=== PATIENT | male | born 1960 | race Caucasian/White ===

== ENCOUNTER 2016-11-18 19:37 | Observation (INO) ==
[2016-11-18] MEDS ORDERED: MORPHINE 2 MG/1 ML SYRINGE IV STA (21:13)
[2016-11-18] MEDS ORDERED: ONDANSETRON 4 MG/2 ML VIAL IV STA (21:13)
[2016-11-18] MEDS ORDERED: SODIUM CHLORIDE 0.9% 500 ML IV STA (21:13)
[2016-11-18] MEDS ORDERED: ONDANSETRON 4 MG/2 ML VIAL ONE (21:30)
[2016-11-18] MEDS ORDERED: MORPHINE 2 MG/1 ML SYRINGE ONE (21:30)
--- NOTE | 2016-11-18 22:17 | CT Report ---
CT head/brain wo con Indication: Fall. CT BRAIN WITHOUT CONTRAST DLP: 1164 mGy*cm. One or more of the following dose reduction techniques was used: Automated exposure control, adjustment of the mA and/or kV according the patient size, or use of iterative reconstruction techniques. Comparison: None. Date of admission: 11/18/2016. Technique: Axial noncontrast CT images of the brain were obtained. Findings: No acute hemorrhage, mass or mass effect. Generalized atrophy is present with prominence of the ventricular system. Covington-white junction is maintained throughout. Some degree of patchy periventricular white matter hypodensity is noted diffusely. No bone lesions. Mild mucosal thickening of the maxillary sinus is noted. Impression: No acute intracranial pathology. Generalized atrophy with ventricular prominence. Patchy small vessel ischemic change, chronic. PROCEDURE INTERPRETED AT [facility] DEPARTMENT OF RADIOLOGY Final Report Signed by: Russel Floyd M.D.
--- NOTE | 2016-11-18 22:20 | CT Report ---
CT cervical spine wo con Indication: Neck pain after fall. CT CERVICAL SPINE WITHOUT CONTRAST DLP: 327 mGy*cm. One or more of the following dose reduction techniques was used: Automated exposure control, adjustment of the mA and/or kV according the patient size, or use of iterative reconstruction techniques. Comparison: None Technique: Axial noncontrast CT images of the cervical spine were obtained. Coronal and sagittal reconstructions were provided. Findings: Some degree of motion artifact present particularly at C2-3. No acute cervical spine fracture or subluxation shown. No bony encroachment on the canal. Mild disc space narrowing from C2-3 through C6-7 is present. No significant facet joint hypertrophy. No intervertebral foraminal stenosis. Impression: Minimal diffuse disc space narrowing. No acute bony injury. PROCEDURE INTERPRETED AT [facility] DEPARTMENT OF RADIOLOGY Final Report Signed by: Russel Floyd M.D.
--- NOTE | 2016-11-18 22:21 | XRay Report ---
XR humerus LT Indication: Fall. Left humerus 2 views: Midshaft humerus fracture is present. Visualized shoulder and elbow appear grossly intact. Overlying skin appears intact. Impression: Midshaft humerus fracture. PROCEDURE INTERPRETED AT [facility] DEPARTMENT OF RADIOLOGY Final Report Signed by: Russel Floyd M.D.
--- NOTE | 2016-11-18 22:22 | XRay Report ---
XR pelvis AP 1 or 2 Views Indication: Pelvic pain. Fall. Pelvis one view: No fracture, dislocation or diastases of the pelvic ring or either hip. Soft tissues are intact and unremarkable. Impression: Negative pelvis. PROCEDURE INTERPRETED AT [facility] DEPARTMENT OF RADIOLOGY Final Report Signed by: Russel Floyd M.D.
--- NOTE | 2016-11-18 22:24 | XRay Report ---
XR chest 1V portable Indication: Shortness of breath. Chest 1 view: Comparison 6 hours earlier, 1502 hours. Left humerus fracture is now present. Heart size is normal. Mediastinal contours unremarkable. Lung volumes are decreased with mild atelectasis. No infiltrates. No pleural effusion or pneumothorax. No displaced rib fractures seen. Impression: Pulmonary hypoinflation. Left humerus fracture. PROCEDURE INTERPRETED AT [facility] DEPARTMENT OF RADIOLOGY Final Report Signed by: Russel Floyd M.D.
--- NOTE | 2016-11-18 22:24 | XRay Report ---
XR shoulder 2V LT Indication: Fall. Humerus fracture. Left shoulder 2 views: Left midshaft humerus fracture noted. Left shoulder shows no dislocation or fracture component. Soft tissues are intact. Impression: Negative left shoulder. Left mid shaft humerus fracture. PROCEDURE INTERPRETED AT [facility] DEPARTMENT OF RADIOLOGY Final Report Signed by: Russel Floyd M.D.
[2016-11-18 22:28] LABS: Basophils # 0.1 10*3/uL (0.0-0.2); Basophils % 0.5 % (0.0-0.8); Eosinophils # 0.1 10*3/uL (0.0-0.87); Eosinophils % 0.7 % (0.00-10.9); Hematocrit 38.9 VOL% (42.0-52.0); Hemoglobin 14.1 GM/DL (14.0-18.0); Immature Granulocytes % 0.5 %; Immature Granulocytes Absolute 0.05 #; Lymphocytes # 1.4 10*3/uL (1.4-4.0); Mean Corpuscular HGB Conc 36.2 GM/DL (32-36); Mean Corpuscular Hemoglobin 30 PG (27-34); Mean Corpuscular Volume 83.5 FL (87-102); Mean Platelet Volume 8.9 FL (9.6-12.0); Monocytes # 0.9 10*3/uL (0.11-0.8); Monocytes % 8.4 % (1.7-12.7); Neutrophils % 76.9 % (38.7-73.9); Platelet Count 172 T/CUMM (130-400); Red Blood Count 4.66 MC/CUMM (3.8-5.5); Red Cell Distribution Width 13.1 % (9.3-17.3); White Blood Count 10.5 T/CUMM (4-12)
[2016-11-18 22:36] LABS: PT Patient Result 10.7 SECS
[2016-11-18 22:47] LABS: Alanine Aminotransferase 10 U/L (16-61); Albumin 3.2 G/DL (3.4-5.0); Alkaline Phosphatase 43 U/L (45-117); Aspartate Amino Transferase 12 U/L (0-37); Blood Urea Nitrogen 13 MG/DL (7-18); Calcium 8.2 MG/DL (8.5-10.1); Glucose 230 MG/DL (74-106); Osmolality,Calculated 279.8 MOS/KG (273-304); Sodium 137 MMOL/L (136-145); Total Protein 5.8 G/DL (6.4-8.3)
--- NOTE | 2016-11-18 22:48 | Emergency Department Note ---
Negrito Pryor Rolonda, am scribing for, and in the presence of, Irving Crzu MD 22:06. Nancy Pryor Charles R, MD, personally performed the services described in this documentation, ascribed by Tex Mahan in my presence, and it is both accurate and complete . Arrival - Arrival Chief Complaint: Extremity Injury Stated Complaint: Broken arm ED Nursing Triage Note: EMS reports that patient was walking to the store to get something to eat when he lost his balance and fell onto left shoulder. Visual deformity noted upon triage with crepitus. Patient recieved 10mg morphine and 250ml NS bolus. Patient complains of severe pain at this time. Mode of Arrival: Ambulatory Limitations: No Limitations Source: Old Records Reviewed, RN Notes Reviewed Time Seen by Provider: 11/18/16 20:08 - History of Present Illness HPI Narrative: Pt is a 56 y/o male who ambulated to the ED with c/o broken left arm with an onset of a few hours ago. Pt states that he was walking to the store to get chicken when suddenly lost his balance falling in a ditch landing on the left shoulder resulting in severe pain. Pt denies hitting his head on the ground. Pt confirms not being able to move his arm at all. No other complaint/pain reported by the pt. Onset (ago): hour(s) Consistency: constant Severity: severe Allergies/Adverse Reactions: Allergies Allergy/AdvReac Type Severity Reaction Status Date / Time No Known Allergies Allergy Verified 11/18/16 14:44 Home Medications: Home Medications Medication Instructions Recorded Confirmed Type Benztropine Tab [Cogentin Tab] 1 mg PO BEDTIME 11/18/16 11/18/16 History Citalopram [CeleXA] 20 mg PO DAILY 11/18/16 11/18/16 History Divalproex Sodium [Divalproex 1,500 mg PO BEDTIME 11/18/16 11/18/16 History Sodium] HydrOXYzine PAMOATE CAP [Vistaril 50 mg PO BEDTIME 11/18/16 11/18/16 History Cap] Trazodone HCl 100 mg PO QAM 11/18/16 11/18/16 History Review of System - Review of System 12 point system: reviewed and no additional remarkable complaints except as stated - Review of System Constitutional: Absent: chills Eyes: Absent: discharge Head/Ears/Nose/Throat: Absent: earache Cardiovascular: Absent: chest pain Gastrointestinal: Absent: abdominal pain Genitourinary male: Absent: urgency Musculoskeletal: Present: arm pain (left shoulder\) Skin: Absent: rash Neurological: Absent: headache Psychiatric: Absent: anxiety Endocrine: Absent: cold intolerance Hematological/Lymphatic: Absent: easy bleeding Allergic/Immunologic: Absent: facial swelling Medical,Surgical,& Family Hx - Medical History Psychological: History of: Psychiatric Problems Endocrine: History of: Diabetes Mellitus (NIDDM) - Social History Smoking Status: Unknown if ever smoked Frequency of Alcohol Use: None Type of Drug Use: None Exam Vital Signs: Vital Signs Temperature 98.0 F 11/18/16 19:40 Pulse Rate 113 H 11/18/16 20:08 Respiratory Rate 22 11/18/16 19:40 Blood Pressure 107/76 11/18/16 19:40 O2 Sat by Pulse Oximetry 97 11/18/16 19:40 - General General appearance: alert, in no apparent distress - Head Head exam: Present: atraumatic, normocephalic - Eye Eye exam: Present: normal appearance, PERRL, EOMI. Absent: nystagmus - ENT ENT exam: Present: normal exam, normal oropharynx, mucous membranes moist. Absent: mucous membranes dry - Neck Neck exam: Present: normal inspection, full ROM. Absent: tenderness - Chest Chest inspection: Present: normal inspection, symmetric chest wall rise. Absent : tenderness - Respiratory Respiratory exam: Present: normal lung sounds bilaterally. Absent: wheezes - Cardiovascular Cardiovascular exam: Present: regular rate, normal rhythm, normal heart sounds. Absent: bradycardia - Abdominal Exam Abdominal exam: Present: soft, normal bowel sounds. Absent: tenderness - Extremities Exam Extremities exam: Absent: normal inspection (deformity of the left shoulder with pain, crepitus; shoulder humerus deformity in abduction) - Back Exam Back exam: Present: normal inspection, full ROM. Absent: tenderness - Neurological Exam Neurological exam: Present: alert, oriented X3, CN II-XII intact - Psychiatric Psychiatric exam: Present: normal affect, normal mood. Absent: depressed - Skin Skin exam: Present: warm, intact, normal color Course Course Narrative: Procedure note: Patient's arm was placed in anatomical straight position with the arm completely extended out at the elbow. Patient ulnar and radial pulse was patent patient good cap refill neurovascularly intact ulnar nerve is intact. Posterior splint was placed long arm from proximal to distal down to the wrist. X-ray was taken for alignment which showed good alignment. Post reduction exam showed good cap refill good radial pulse ulnar artery patent neurovascular intact - Consultations Consultation #1: Dr. Devin Champion consulted and he will admit patient will get medicine consulted hospitalist for medical management Time: 22:46 Results - Labs CBC & BMP: 11/18/16 22:14 Lab Results: I have reviewed the patients labs Labs: Laboratory Tests 11/18/16 22:14 WBC 10.5 D RBC 4.66 Hgb 14.1 Hct 38.9 L MCV 83.5 L MCHC 36.2 H Plt Count 172 MPV 8.9 L Neut % (Auto) 76.9 H Lymph % (Auto) 13.0 L Neut # (Auto) 8.0 H Mower # (Auto) 0.9 H Laboratory Tests 11/18/16 22:14 INR 1.0 PT Patient/Control Mix 10.7 - Diagnostic Findings Procedure: CT: report reviewed by me (Head: No acute intracranial pathology. Generalized atrophy with ventricular prominence. Patchy small vessel ischemic change, chronic.; Cervical Spine: minimal diffuse disc space narrowing. No acute bony injury.), X-ray: report reviewed by me (Shoulder: Negative left shoulder. Left mid shaft humerus fracture.; Pelvis: Negative pelvis.; Humerus: Midshaft humerus fracture.; Chest: Pulmonary hypoinflation. Left humerus fracture.) Disposition Clinical Impression: Fall, Left midshaft humerus fracture, Extrapyramidal and movement disorder Case discussed with: patient Disposition: Still a Patient Condition: Stable Time of Disposition: 22:48
--- NOTE | 2016-11-18 22:56 | XRay Report ---
XR humerus LT Indication: Humerus fracture. Left humerus one view: Image labeled "postreduction" demonstrates improved alignment of a mid shaft humerus fracture. There continues to be offset of the fracture fragments by approximately the diameter of the mid shaft of the humerus. Impression: Improved alignment of the midshaft humerus fracture. PROCEDURE INTERPRETED AT [facility] DEPARTMENT OF RADIOLOGY Final Report Signed by: Russel Floyd M.D.
--- NOTE | 2016-11-18 23:11 | Hospitalist Consult Note ---
Assessment and Plan (1) Palpitations Status: Acute Current Visit: No (2) Fall Status: Acute Current Visit: Yes (3) Extrapyramidal and movement disorder Status: Acute Assessment and plan: We will continue home meds as appropriate. Patient does seem to have extraparametal symptoms. Seem to have a resting tremor tardive dyskinesia. His Cogentin that he takes at night should help with this. Will continue a sliding scale as needed for his diabetes. Current Visit: Yes History of Present Illness - Consult Narrative Reason for consult: Medical problems History of present illness: Mr. Resendiz is a 56 year old male who presented to the ER with chief complaint of broken left arm. He was walking to a store lost his balance and fell into a ditch landing on his left side. He suffered a fracture of his humerus. He was brought up to our hospital for further evaluation. He is being admitted to orthopedic service and we were consulted secondary to his medical issues. CC: Caden Beltran Jr., MD - Home Medications and Allergies Home Medications: Home Medications Medication Instructions Recorded Confirmed Type Benztropine Tab [Cogentin Tab] 1 mg PO BEDTIME 11/18/16 11/18/16 History Citalopram [CeleXA] 20 mg PO DAILY 11/18/16 11/18/16 History Divalproex Sodium [Divalproex 1,500 mg PO BEDTIME 11/18/16 11/18/16 History Sodium] HydrOXYzine PAMOATE CAP [Vistaril 50 mg PO BEDTIME 11/18/16 11/18/16 History Cap] Trazodone HCl 100 mg PO QAM 11/18/16 11/18/16 History Allergies/Adverse Reactions: Allergies Allergy/AdvReac Type Severity Reaction Status Date / Time No Known Allergies Allergy Verified 11/18/16 14:44 Medical,Surgical,& Family Hx - Medical History Psychological: History of: Psychiatric Problems Endocrine: History of: Diabetes Mellitus (NIDDM) - Surgical History Surgical History: noncontributory (none) - Family History Family History: Reports;: Family Diabetes - Social History Smoking Status: Unknown if ever smoked Frequency of Alcohol Use: None Type of Drug Use: None 12 point system: reviewed and no additional remarkable complaints except as stated Exam - Constitutional Vitals: Period Temp Pulse Resp BP Sys/Weldon Pulse Ox Last 24 Hr 98.0 F-98.0 F 113-118 20-22 107-107/76-76 97 - General General appearance: alert, in no apparent distress patient has a resting tremor and extraparametal symptoms - Head Head exam: Present: atraumatic, normocephalic - Eye Eye exam: Present: normal appearance, PERRL, EOMI. Absent: nystagmus - ENT ENT exam: Present: normal exam, normal oropharynx, mucous membranes moist. . - Neck Neck exam: Present: normal inspection, full ROM. Absent: tenderness - Chest Chest inspection: Present: normal inspection, symmetric chest wall rise. Absent : tenderness - Respiratory Respiratory exam: Present: normal lung sounds bilaterally. Absent: wheezes - Cardiovascular Cardiovascular exam: Present: regular rate, normal rhythm, normal heart sounds. Absent: bradycardia - Abdominal Exam Abdominal exam: Present: soft, normal bowel sounds. Absent: tenderness - Extremities Exam Extremities exam: Absent: normal inspection patient is status post soft splint placed by ER physician - Back Exam Back exam: Present: normal inspection, full ROM. Absent: tenderness - Neurological Exam Neurological exam: Present: alert, oriented X3, CN II-XII intact - Psychiatric Psychiatric exam: Present: normal affect, normal mood. - Skin Skin exam: Present: warm, intact, normal color Results - Labs CBC & BMP: 11/18/16 22:14 11/18/16 22:14
[2016-11-19] MEDS ORDERED: DEXTROSE 50% 25 GM/50 ML VIAL IV PRN
[2016-11-19] MEDS ORDERED: GLUCAGON 1 MG VIAL IM PRN
[2016-11-19] MEDS ORDERED: HYDROmorphone 2 MG/1 ML VIAL IV PRN
[2016-11-19] MEDS: SODIUM CHLORIDE 0.9% 1,000 ML IV SCH ×3 (00:34→22:08)
[2016-11-19 01:23] LABS: Apearance,Urine CLEAR (Clear); Bilirubin,Urine Negative (Negative); Blood, Urine Negative (Negative); Glucose,Urine (UA) >=500 mg/dL (Negative); Ketones,Urine 20 mg/dL (Negative); Mucus,Urine Occasional /LPF (Occasional); Nitrite,Urine Negative (Negative); Protein,Urine Negative; RBC,Urine <1 /HPF (0-4); Squamous Epithelial Cell,Urine Occasional /HPF (0-10); Urine Color Yellow (Yellow); Urine Specific Gravity 1.024 (1.001-1.035); Urine Urobilinogen < 2.0 EU/DL (0.2-1.0); WBC,Urine <1 /HPF (0-6)
[2016-11-19 01:26] LABS: Barbiturates Screen,Urine Negative (Negative); Benzodiazepines Screen,Urine Negative (Negative); Cannabinoid Screen,Urine Negative (Negative); Opiate Screen,Urine Positive (Negative); Phencyclidine Screen,Urine Negative (Negative)
--- NOTE | 2016-11-19 04:12 | EKG Report ---
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
[2016-11-19 06:14] LABS: INR 1.1; PT Patient Result 11.5 SECS
--- NOTE | 2016-11-19 08:36 | Orthopedic History & Physical ---
History of Present Illness Chief complaint: Left humerus fracture History of present illness: Mr. Resendiz is a 56 year old male See dictated report Diagnosis left humerus fracture Plan due to medical issues and psychological problems would recommend stabilization. Do not believe he is a good candidate for nonoperative management of his shaft fracture Home Medications Medication Instructions Recorded Confirmed Type Benztropine Tab [Cogentin Tab] 1 mg PO BEDTIME 11/18/16 11/18/16 History Citalopram [CeleXA] 20 mg PO DAILY 11/18/16 11/18/16 History Divalproex Sodium [Divalproex 1,500 mg PO BEDTIME 11/18/16 11/18/16 History Sodium] HydrOXYzine PAMOATE CAP [Vistaril 50 mg PO BEDTIME 11/18/16 11/18/16 History Cap] Trazodone HCl 100 mg PO QAM 11/18/16 11/18/16 History Allergies Allergy/AdvReac Type Severity Reaction Status Date / Time No Known Allergies Allergy Verified 11/18/16 14:44 Medical,Surgical,& Family Hx - Medical History Psychological: History of: Anxiety Disorders, Bipolar Disorder, Schizophrenia, Psychiatric Problems Endocrine: History of: Diabetes Mellitus (NIDDM) Musculoskeletal: History of: Musculoskeletal Problems (left arm fx) - Family History Family History: Reports;: Family Diabetes - Social History Smoking Status: Unknown if ever smoked Frequency of Alcohol Use: None Type of Drug Use: None Exam - Constitutional Vitals: Period Temp Pulse Resp BP Sys/Weldon Pulse Ox Last 24 Hr 97.6 F-98.0 F 103-118 20-22 107-119/45-76 97-98 Results - Labs CBC & BMP: 11/18/16 22:14 11/18/16 22:14
[2016-11-19] MEDS: CITALOPRAM 20 MG TABLET PO SCH (11:12)
[2016-11-19] MEDS: INSULIN REGULAR 100 UNIT/ML SUBCUT SCH ×4 (11:12→22:08)
--- NOTE | 2016-11-19 11:54 | Hospitalist Progress Note ---
Assessment and Plan - Time spent with patient Time spent with patient: Greater than 30 minutes (1) Humerus fracture Status: Acute Assessment and plan: Defer to orthopedics. Current Visit: Yes (2) Extrapyramidal and movement disorder Status: Acute Assessment and plan: Continue medications. Current Visit: Yes Hospitalist: Subjective Interval history: No complaints or overnight events. Admitted with left humerus fracture. Exam - Constitutional Vitals: Period Temp Pulse Resp BP Sys/Weldon Pulse Ox Last 24 Hr 97.6 F-98.1 F 101-118 20-22 107-119/45-76 97-98 General appearance: no acute distress - Head Head exam: Present: normocephalic, atraumatic - Eye Eye exam: Present: EOMI Pupils: Present: COREEN - ENT ENT exam: Present: normal exam - Neck Neck exam: Present: normal inspection - Respiratory Respiratory exam: Present: clear to auscultation bilaterally. Absent: rhonchi, wheezes - Cardiovascular Cardiovascular exam: Present: regular rate and rhythm. Absent: gallop, rubs, systolic murmur - GI/Abdominal GI/Abdominal exam: Present: normal bowel sounds, soft. Absent: distended, firm , guarding, tenderness, rebound - Extremities Exam Extremities exam: Present: normal inspection, other (left arm within lianna wrapping). Absent: calf tenderness, edema Results - Labs CBC & BMP: 11/18/16 22:14 11/18/16 22:14 Lab Results: I have reviewed the past 24 hour labs
[2016-11-19] MEDS ORDERED: PROPOFOL 200 MG/20 ML VIAL IV ONE (13:40)
[2016-11-19] MEDS ORDERED: ONDANSETRON 4 MG/2 ML VIAL ONE ×2 (13:40→15:47)
[2016-11-19] MEDS ORDERED: PHENYLEPHRINE 1 MG/10 ML SYRINGE IV ONE (13:40)
[2016-11-19] MEDS ORDERED: LIDOCAINE 2% 5 ML VIAL ONE (13:40)
[2016-11-19] MEDS ORDERED: ROCURONIUM 100 MG/10 ML VIAL IV ONE (13:40)
[2016-11-19] MEDS ORDERED: PROMETHAZINE 25 MG/1 ML VIAL IM PRN (15:01)
[2016-11-19] MEDS ORDERED: MAGNESIUM HYDROXIDE SUSP 30 ML UDCUP PO PRN ×2 (15:01)
[2016-11-19] MEDS ORDERED: fentaNYL 100 MCG/2 ML VIAL ONE (15:22)
[2016-11-19] MEDS ORDERED: MIDAZOLAM 2 MG/2 ML VIAL ONE (15:22)
[2016-11-19] MEDS ORDERED: SEVOFLURANE 1 UNIT/15 MINUTE INH ONE (15:22)
[2016-11-19] MEDS ORDERED: ACETAMINOPHEN 1,000 MG/100 ML VIAL IV ONE (15:22)
[2016-11-19] MEDS ORDERED: ONDANSETRON 4 MG/2 ML VIAL IV PRN ×2 (15:34)
[2016-11-19] MEDS ORDERED: HYDROmorphone 2 MG/1 ML VIAL ONE (15:47)
--- NOTE | 2016-11-19 15:48 | XRay Report ---
XR humerus LT Indication: ORIF left humerus. Fluoroscopy left humerus: Fluoroscopy time 38 seconds, 4 captured images. Mid shaft humerus fracture secured with a IM nail in anatomic alignment. The jai stands proud of the humeral head. Impression: Anatomic alignment following IM nail placement. PROCEDURE INTERPRETED AT [facility] DEPARTMENT OF RADIOLOGY Final Report Signed by: Russel Floyd M.D.
[2016-11-19] MEDS: HYDROmorphone 2 MG/1 ML VIAL IV PRN ×4 (15:51→16:18)
[2016-11-19] MEDS ORDERED: LACTATED RINGERS 1,000 ML IV SCH (16:00)
--- NOTE | 2016-11-19 16:22 | Anesthesia Post-Op ---
Anesthesia Post OP - Post Ansesthetic Evaluation Patient seen in post op: Yes Resp: within normal limits CV: within normal limits Mental: within normal limits Temp: within normal limits [id number]: within normal limits Nausea and Vomiting: within normal limits Pain: within normal limits
--- NOTE | 2016-11-19 16:23 | History and Physical Report ---
DATE OF ADMISSION: 11/19/2016 HISTORY OF PRESENT ILLNESS: This is an admission note from 11/19/16. A 56-year-old white male admit eliud late last night for evaluation of injuries he sustained when he fell into a ditch. Reportedly, barbie garner was ambulating independently when this occurred. He had immediate pain and deformity about his lef t upper arm. He was evaluated at [facility] where diagnosis confirmed a displaced mid s haft humerus fracture. He has been admitted to the orthopedic service and medical consultation is in place. He has no other complaints. PAST MEDICAL HISTORY: Diabetes, psychiatric. MEDICATIONS: Trazodone, Restoril, divalproex, Celexa, and Cogentin. ALLERGIES: None. PHYSICAL EXAMINATION GENERAL: Well-developed, well-nourished male. He is awake, alert, responds to questions appropriate ly. HEENT: Within normal limits. CHEST: Clear. HEART: Regular rate and rhythm. ABDOMEN: Soft, nontender. /RECTAL: Deferred. EXTREMITIES: He has no pain about either lower extremity. At the right upper on the left side a spl int is in place. He describes intact sensibility in the median, radial, and ulnar distribution. He is able to extend the digits and the wrist with some difficulty, but functional. No pain about the f orearm or elbow. Radiographs confirmed displaced minimally comminuted mid shaft humerus fracture, slightly oblique. IMPRESSION: LEFT HUMERAL SHAFT FRACTURE. PLAN: I will discuss with him treatment options. I do not believe he is a good candidate for non-op erative management given his multiple medical issues and psychiatric diagnosis. I recommended we con floor refinisher operative intervention given the mid shaft nature and the transverse nature of the fracture, I believe a jai would be satisfactory. He appears to understand and agrees with the plan for intramedu llary nailing left humerus later today. I did discuss with him nature of the procedure, associated r isks, benefits, and alternative, risks we discussed including infection, anesthesia, and possible ner ve injury. All questions were answered. He appears to understand and agrees to proceed.
--- NOTE | 2016-11-19 17:14 | EKG Report ---
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
[2016-11-19] MEDS ORDERED: BENZTROPINE 1 MG TABLET PO SCH (21:00)
[2016-11-19] MEDS ORDERED: DIVALPROEX 500 MG TABLET PO SCH (21:00)
--- NOTE | 2016-11-19 21:41 | Operative Note ---
DATE: 11/19/2016 PREOPERATIVE DIAGNOSIS: LEFT HUMERAL SHAFT FRACTURE. POSTOPERATIVE DIAGNOSIS: LEFT HUMERAL SHAFT FRACTURE. OPERATIVE PROCEDURE: Intramedullary nailing, left humerus. SURGEON: Caden Beltran Jr., MD ANESTHESIA: General. INDICATIONS: A 56-year-old white male, who injured last night when he fell and fracturing his left u pper arm. I discussed with him preoperatively the diagnosis and treatment options. It was felt that he would best benefit from stabilization and I have recommended intramedullary device. OPERATIVE PROCEDURE: The patient was taken to the operating room and under general anesthetic, posit ioned in a beach chair type position. The left upper extremity and shoulder region were prepped and draped in usual sterile manner. He received Ancef preoperatively. A small deltoid splitting approac h was then carried out to the greater tuberosity. The cuff was split for later repair. Starting poi nt was obtained and a guide jai passed into the proximal fracture fragment. The humerus was gently m anipulated, so that the guide jai could be passed in the distal fragment. A 9 x 280 mm nail was jono cted. The humeral shaft was reamed twice up to 10 mm. The nail inserted. It was locked proximally with a spiral blade and end cap. That was locked distally x1 with a freehand technique front to back . All wounds were irrigated. The deltoid split and cuff split were repaired with #0 Vicryl, 2-0 Philippe ryl for subcutaneous layer, and jagdeep for skin. The spiral blade portal was closed with 2-0 Vicryl and jagdeep, the distal locking portal with jagdeep only. Sterile dressings were applied. He was a wakened and taken to recovery room in stable condition. CC:
[2016-11-19] MEDS: HydrOXYzine PAMOATE 25 MG CAPSULE PO SCH ×2 (22:06→22:13)
[2016-11-19] MEDS: traZODone 50 MG TABLET PO SCH ×2 (22:08→22:13)
--- NOTE | 2016-11-20 07:57 | Orthopedic Progress Note ---
Orthopedics - Subjective Interval history: Neurovascular intact including radial nerve pain control fair with pills. Instructed will discharge today. Exam - Constitutional Vitals: Period Temp Pulse Resp BP Sys/Weldon Pulse Ox Last 24 Hr 97.4 F-100.3 F 96-118 14-20 93-143/63-86 92-100 Results - Labs CBC & BMP: 11/18/16 22:14 11/18/16 22:14 Quality Measures - VTE Contraindication to Pharmacological VTE Prophylaxis: High Risk of Bleeding
--- NOTE | 2016-11-20 08:00 | Discharge Summary ---
Hospital Course - Hospital Course Hospital Course: Admitted for humeral shaft fracture left underwent repair discharged home Diagnosis - Discharge Diagnosis (1) Humeral shaft fracture Status: Acute Discharge Plan - Discharge Data Disposition: Disch To Home/Self Care Condition at Discharge: Stable Discharge Diet: advance to your usual diet Activity: increase activity as tolerated (Use sling for comfort elbow range of motion and gentle shoulder motion is okay) Hygiene: may shower, keep area(s) dry Weight Bearing at Discharge: weight bear as tolerated Driving: not until seen by doctor - Discharge Medications New HYDROcodone/ACETAMIN 7.5-325 [[place] 7.5-325] 2 tablet PO Q4H PRN #25 tablet PRN Reason: Pain Severe (8-10) Continue Trazodone HCl 100 mg PO QAM HydrOXYzine PAMOATE CAP [Vistaril Cap] 50 mg PO BEDTIME Benztropine Tab [Cogentin Tab] 1 mg PO BEDTIME Citalopram [CeleXA] 20 mg PO DAILY Divalproex Sodium 1,500 mg PO BEDTIME - Follow Up or Referral - Forms/Instructions Additional Discharge Instructions: Discharge to home discharge medications [place] 7.5 #25 no refills continue home medications arm sling for comfort daily dressing change with small and large Band-Aids elbow range of motion is encouraged actively gentle passive motion of the shoulder is also okay. May shower keep wounds dry follow-up 1 week November 27 Exam - Constitutional Vitals: Period Temp Pulse Resp BP Sys/Weldon Pulse Ox Last 24 Hr 97.4 F-100.3 F 96-118 14-20 93-143/63-86 92-100 Discharge Results Labs on day of discharge: Labs from last 24 hours 11/20/16 11/19/16 11/19/16 07:11 21:00 11:24 POC Glucose 137 H 212 H 216 H 11/19/16 09:17 POC Glucose 304 H DS: Provider Date of admission: 11/18/16 23:00 Primary care physician: . 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
[2016-11-20] MEDS: INSULIN REGULAR 100 UNIT/ML SUBCUT SCH ×3 (08:38→16:14)
[2016-11-20] MEDS: CITALOPRAM 20 MG TABLET PO SCH (08:58)
[2016-11-20] MEDS: SODIUM CHLORIDE 0.9% 1,000 ML IV SCH (14:04)
[2016-11-20 16:25] VITALS: BP 123/75
== END 2016-11-20 16:38 | disposition home or self-care (01) ==
LOC: EDBD → EDUNIT# → N.ED 19:37 → N.EDINP 23:00 → INTOOBSV 23:00 → N.3E 23:03
PROVIDERS: ADMIT Orthopaedic Surgery; ATTEND Orthopaedic Surgery

== ENCOUNTER 2016-12-09 12:14 | Inpatient (IN) ==
[2016-12-09] MEDS ORDERED: PANTOPRAZOLE 40 MG TABLET PO STA (13:01)
[2016-12-09] MEDS ORDERED: ONDANSETRON 4 MG/2 ML VIAL IV STA (13:01)
--- NOTE | 2016-12-09 13:05 | Emergency Department Note ---
Arrival - Arrival Chief Complaint: GI Bleed/Rectal ED Nursing Triage Note: C/O DARK RED DIARRHEA ONSET ABOUT A WEEK AGO. PT STATES IS UNABLE TO EAT OR DRINK DUE TO DIARRHEA Mode of Arrival: Stretcher Limitations: No Limitations Source: Patient Time Seen by Provider: 12/09/16 13:01 - History of Present Illness HPI Narrative: This 56-year-old white male presents with complaints of melanotic stools for the past week. He states that associated with this he has had low-grade nausea without significant vomiting. He likewise denies any complaints of chills, fever, heartburn, belching, or water brash. He l has had no complaints of chest pain or shortness of breath. He also has just recently been discharged from [facility] for [facility] of [facility] medications. Currently he is medically stable Onset (ago): week(s) (Patient presents 2 weeks post onset of symptoms) Allergies/Adverse Reactions: Allergies Allergy/AdvReac Type Severity Reaction Status Date / Time No Known Allergies Allergy Verified 11/21/16 09:49 Home Medications: Home Medications Medication Instructions Recorded Confirmed Type Benztropine Tab [Cogentin Tab] 1 mg PO BID 11/18/16 12/09/16 History Citalopram [CeleXA] 20 mg PO DAILY 11/18/16 12/09/16 History Divalproex Sodium 1,500 mg PO BEDTIME 11/18/16 12/09/16 History HydrOXYzine PAMOATE CAP [Vistaril 50 mg PO BEDTIME 11/18/16 12/09/16 History Cap] Trazodone HCl 50 - 100 mg PO QPM 11/18/16 12/09/16 History Review of System - Review of System 12 point system: reviewed and no additional remarkable complaints except as stated - Review of System Constitutional: Present: as per HPI Respiratory: Present: as per HPI Cardiovascular: Present: as per HPI Gastrointestinal: Present: as per HPI Medical,Surgical,& Family Hx - Medical History Cardio: No history of: CAD, Hypertension Psychological: History of: Anxiety Disorders, Bipolar Disorder, Schizophrenia, Psychiatric Problems Endocrine: History of: Diabetes Mellitus (NIDDM) (non compliant with medications ) No history of: Thyroid Disorder Respiratory: History of: Asthma No history of: Bronchitis Gastrointestinal: History of: GERD Musculoskeletal: History of: Musculoskeletal Problems (frequent falls) - Surgical History Abdominal Surgeries: Patient denies: Appendectomy, Cholecystectomy Orthopedic Surgeries: Surgical HX of;: Orthopedic Surgery (ORIF and IM nailing of the left humerus) Patient denies;: Total Hip Replacement, Total Knee Replacement - Family History Family History: Reports;: Family Diabetes - Social History Smoking Status: Unknown if ever smoked Frequency of Alcohol Use: Unknown Type of Drug Use: Unknown Exam Physical Examination: GENERAL: Well developed, well nourished elderly white male in no acute distress. HEENT: Normocephalic. No trauma. Moist mucous membranes. EOMI. PERRLA. ENT NML NECK: Supple. No adenopathy. CARDIAC: Regular. No murmurs. Heart rate 110 CHEST: Clear to auscultation. No respiratory distress. O2 sat 99% evidence of recent right clavicle surgery ABDOMEN: Soft. Nontender. Active bowel sounds.: Red blood in the rectal vault EXTREMITIES: No trauma. Normal ROM. No pedal edema. SKIN: No diaphoresis. No rash. NEURO: Alert. Neuro intact no focal deficits. Vital Signs: Vital Signs Temperature 98.8 F 12/09/16 12:27 Pulse Rate 111 H 12/09/16 12:27 Respiratory Rate 18 12/09/16 12:27 Blood Pressure 143/90 12/09/16 12:27 O2 Sat by Pulse Oximetry 99 12/09/16 12:21 Course - Reevaluation(s) Reevaluation #1: Discussed with patient the need for hospitalization. - Consultations Consultation #1: Discussed with hospitalist who will accept for further evaluation treatment. Results - Labs CBC & BMP: 12/09/16 14:17 12/09/16 14:17 Labs: I reviewed the laboratory noted the marginal drop in crit, bump in glucose, and bump in CPK - Impressions EKG: Sinus rhythm at 94. Normal ST segments normal EKG. Disposition Clinical Impression: Gastrointestinal hemorrhage, Schizophrenia, Recent right clavicle surgery Time of Disposition: 15:43
[2016-12-09] MEDS ORDERED: ONDANSETRON 4 MG/2 ML VIAL ONE (14:05)
[2016-12-09] MEDS ORDERED: PANTOPRAZOLE 40 MG TABLET PO ONE (14:05)
[2016-12-09 14:22] LABS: Basophils # 0.1 10*3/uL (0.0-0.2); Basophils % 0.9 % (0.0-0.8); Eosinophils % 0.2 % (0.00-10.9); Hematocrit 39.2 VOL% (42.0-52.0); Hemoglobin 13.4 GM/DL (14.0-18.0); Immature Granulocytes % 0.3 %; Immature Granulocytes Absolute 0.02 #; Lymphocytes # 1.4 10*3/uL (1.4-4.0); Mean Corpuscular HGB Conc 34.2 GM/DL (32-36); Mean Corpuscular Hemoglobin 29 PG (27-34); Mean Corpuscular Volume 85.6 FL (87-102); Mean Platelet Volume 8.7 FL (9.6-12.0); Monocytes # 0.6 10*3/uL (0.11-0.8); Neutrophils # 4.3 10*3/uL (1.4-7.4); Neutrophils % 67.6 % (38.7-73.9); Platelet Count 340 T/CUMM (130-400); Red Blood Count 4.58 MC/CUMM (3.8-5.5); Red Cell Distribution Width 13.2 % (9.3-17.3); White Blood Count 6.3 T/CUMM (4-12)
[2016-12-09 14:35] LABS: Partial Thromboplastin Time 28.9 SECS (0-40)
[2016-12-09 15:01] LABS: Alanine Aminotransferase 13 U/L (16-61); Albumin 3.2 G/DL (3.4-5.0); Alkaline Phosphatase 73 U/L (45-117); Aspartate Amino Transferase 21 U/L (0-37); Blood Urea Nitrogen 21 MG/DL (7-18); Calcium 8.5 MG/DL (8.5-10.1); Glucose 169 MG/DL (74-106); Osmolality,Calculated 279.8 MOS/KG (273-304); Potassium 3.8 MMOL/L (3.5-5.1); Sodium 137 MMOL/L (136-145); Total Protein 7.2 G/DL (6.4-8.3); Troponin I Only < 0.015 NG/ML (0.00-0.045)
--- NOTE | 2016-12-09 15:49 | Hospitalist History & Physical ---
Assessment and Plan (1) Gastrointestinal hemorrhage with melena Status: Acute Assessment and plan: We will gently rehydrate, start PPIs, DVT prophylaxis, promote bowel rest, and consult gastroenterology to evaluate and treat. I have reviewed the patient's home medication none of which are commonly associated with the risk for the development of melena. Current Visit: Yes (2) IDDM (insulin dependent diabetes mellitus) Status: Acute Assessment and plan: We will monitor the patient's blood sugars. Start Accu-Cheks with sliding scale coverage and obtain hemoglobin A1c. Current Visit: No (3) History of bipolar disorder Status: Acute Assessment and plan: We will resume the patient's home medication regimen. Will obtain valproic acid level. Current Visit: No History of Present Illness Chief complaint: Bloody stool History of present illness: This is a very pleasant 56-year-old male that presented to the ED at [facility] this afternoon for the evaluation of bloody stools. Patient has a medical history significant for bipolar disease, humeral shaft fracture, non insulin-dependent diabetes mellitus, schizophrenia, and anxiety disorder. Patient surgical history significant for ORIF and IM nailing of the left humerus (10/2016). In recent months, the patient has had 2 hospitalizations here at [facility]. On November 18 the patient was admitted here for a left humerus fracture as a result of falling in a ditch. The patient underwent surgical repair of the left humerus on November 19, 2016 under the direction of Dr. Beltran he was subsequently discharged home to follow-up with his primary care physician and orthopedist as indicated. The patient represented to the ED on November 21, 2016 for evaluation of a fall. Apparently the patient had been discharged to his apartment which is upstairs. The patient was attempting to ambulate down the stairs when he lost his balance falling to the bottom of the stairs. He was evaluated and subsequently discharged to [facility] for continuation of care. The patient was discharged from [facility] on December 05, 2016 back to his apartment with his roommate. The patient reported the onset of the above symptoms 1 week prior to presentation. He reported that the symptoms actually started when he was at [facility] however he did not inform the staff. He further reported that he was unable to eat or drink due to the multiple loose stools. The patient was assessed at the time of ED presentation, labs were obtained. Complete blood count reported white blood cell count of 6.3, hemoglobin 13.4, hematocrit 39.2, and platelet count at 340. Coagulation panel reported INR 1.0 , PT at 11.0, and PTT at 28.9. Chemistry panel reported sodium at 137, potassium 3.8, chloride 101, carbon dioxide 24, BUN 21, alkaline phosphatase at 492 creatinine 1.00, glucose at 169. Cardiac enzymes reported a troponin at less than 0.015. After brief discussion with both Dr. Higgins and Dr. Monae, the patient will be admitted to the hospitalist services for continuation of care. A gastroenterology consultation has been requested to assist in the management of the patient in a clinical encounter. Home medications have been reviewed and reconciled. CODE STATUS discussed; the patient is a FULL CODE. Home Medications Medication Instructions Recorded Confirmed Type Benztropine Tab [Cogentin Tab] 1 mg PO BID 11/18/16 12/09/16 History Citalopram [CeleXA] 20 mg PO DAILY 11/18/16 12/09/16 History Divalproex Sodium 1,500 mg PO BEDTIME 11/18/16 12/09/16 History HydrOXYzine PAMOATE CAP [Vistaril 50 mg PO BEDTIME 11/18/16 12/09/16 History Cap] Trazodone HCl 50 - 100 mg PO QPM 11/18/16 12/09/16 History Allergies Allergy/AdvReac Type Severity Reaction Status Date / Time No Known Allergies Allergy Verified 11/21/16 09:49 Medical,Surgical,& Family Hx - Medical History Cardio: No history of: CAD, Hypertension Psychological: History of: Anxiety Disorders, Bipolar Disorder, Schizophrenia, Psychiatric Problems Endocrine: History of: Diabetes Mellitus (NIDDM) (non compliant with medications ) No history of: Thyroid Disorder Respiratory: History of: Asthma No history of: Bronchitis Gastrointestinal: History of: GERD Musculoskeletal: History of: Musculoskeletal Problems (frequent falls) - Surgical History Abdominal Surgeries: Patient denies: Appendectomy, Cholecystectomy Orthopedic Surgeries: Surgical HX of;: Orthopedic Surgery (ORIF and IM nailing of the left humerus) Patient denies;: Total Hip Replacement, Total Knee Replacement - Family History Family History: Reports;: Family Diabetes - Social History Smoking Status: Unknown if ever smoked Frequency of Alcohol Use: Unknown Type of Drug Use: Unknown 12 point system: reviewed and no additional remarkable complaints except as stated Exam - Constitutional Vitals: Period Temp Pulse Resp BP Sys/Weldon Pulse Ox Last 24 Hr 98.8 F-98.8 F 111-111 18-18 143-143/90-90 99 General appearance: normal weight, no acute distress - Head Head exam: Present: normal inspection, normocephalic, atraumatic - Eye Eye exam: Present: EOMI, conjunctival injection. Absent: nystagmus Pupils: Present: COREEN, normal accommodation - ENT ENT exam: Present: normal exam, normal external ear exam, normal oropharynx - Neck Neck exam: Present: normal inspection. Absent: lymphadenopathy, meningismus, thyromegaly - Respiratory Respiratory exam: Present: clear to auscultation bilaterally. Absent: rales, rhonchi, stridor, wheezes - Cardiovascular Cardiovascular exam: Present: regular rate and rhythm. Absent: carotid bruit, diastolic murmur, gallop, JVD, rubs, systolic murmur - GI/Abdominal GI/Abdominal exam: Present: normal bowel sounds, soft. Absent: tenderness - Extremities Exam Extremities exam: Present: normal inspection, normal capillary refill, full ROM. Absent: edema - Back Exam Back exam: Present: normal inspection - Neurological Exam Neurological exam: Present: alert, oriented X3, CN II-XII intact - Psychiatric Psychiatric exam: Present: anxious - Skin Skin exam: Present: normal color, warm, dry Results - Labs CBC & BMP: 12/09/16 14:17 12/09/16 14:17 Lab Results: I have reviewed the past 24 hour labs
[2016-12-09] MEDS ORDERED: GLUCAGON 1 MG VIAL IM PRN ×2 (15:58→18:22)
[2016-12-09] MEDS ORDERED: DEXTROSE 50% 25 GM/50 ML VIAL IV PRN ×2 (15:58→18:22)
[2016-12-09] MEDS: SODIUM CHLORIDE 0.9% 1,000 ML IV SCH (17:54)
[2016-12-09] MEDS: INSULIN REGULAR 100 UNIT/ML SUBCUT SCH ×2 (17:54→20:53)
--- NOTE | 2016-12-09 20:37 | Gastrointestinal Consult Note ---
Assessment and Plan (1) GI bleeding Status: Acute Assessment and plan: The picture is a confusing one as he has had both black stools which may be due to Pepto-Bismol or upper GI tract bleeding and more recently rectal bleeding that is bright red which may be secondary to brisk ulcer bleeding although this is usually associated with tachycardia and a greater drop in the patient's hematocrit which at this point appears negligible. I strongly suspect he has rectal bleeding from either colitis or hemorrhoidal bleeding and at the earlier lack stools may been secondary to gastric erosions or perhaps even just the Pepto-Bismol he had been taking to make his stomach feel better. This patient has a remarkable amount of anxiety which certainly may lead to gastric erosions and/or ulcerations. I will start him on some Protonix if this is not already been initiated. Risks of the procedures include but are not limited to: Bleeding, infection, perforation, cardiac and pulmonary compromise. Current Visit: Yes (2) Diarrhea Status: Acute Assessment and plan: Because of the patient's diarrhea remains unclear. This may be due to a previous C. difficile infection over or due to antibiotic exposure over the last several weeks, will check standard stool cultures and C. difficile and I do plan to do a colonoscopy for the patient leaves the hospital after we establish the findings of the upper GI tract. We will likely do this on . The patient's Depakote level is normal equals 56 (normal equals 50 -100)--this is the medication on the patient's list most likely producing diarrhea at 7-23%, contrary to his opinion, trazodone typically produces constipation in the vast majority of patients. Further recommendations post discovery of stool culture results and colonoscopy. We will undoubtedly performed biopsies to look for the various types of colitis including microscopic and collagenous. Current Visit: Yes (3) Nausea & vomiting Status: Acute Assessment and plan: I suspect this patient probably has some degree of erosive gastritis although is not complaining of any pain. He has chronic nausea and vomiting. This may have more to do with his anxiety than other issues. He is followed at [place], and is on Celexa to help with his anxiety. He must be able to tolerate his medications to some degree as he has a normal Depakote level. We will continue to observe the amount that he is eating and having bowel movements. I have asked the nurses to focus on these issues for me and document in the chart. Current Visit: Yes (4) Fecal incontinence Status: Acute Assessment and plan: This may likely improve as the patient's diarrhea improves. Lomotil will help, once we have an etiology for the diarrhea. Current Visit: Yes History of Present Illness Chief complaint: GI bleeding, earlier melena, bright red blood, diarrhea 20x/day History of present illness: Mr. Resendiz is a 56 year old male Who presents with a combination of recent black stools now turned to red over the last 1 week. Despite the chronic nature of the blood loss his hematocrit remains 39%. He does not have any abdominal pain. He describes diarrhea with the onset of trazodone use at home and states that this can be up to 20 times per day and that the patient is starting to have fecal incontinence. Initially the fecal incontinence was black and he states that "I ruined my apartment", more recently the stool has turned to bright red. The patient had taken some Pepto-Bismol and so this may have affected the color of the stool. He denies use of antibiotics in the last several months. He does admit to some recent nausea and vomiting states "I cannot keep anything down". He does not eat any unusual foods such as steak tar tar, sushi, or undercooked meats. He has not traveled any place recently. Patient states that he has a bipolar disorder and anxiety and is seen frequently in the [facility] for this. He is on a variety of medications including Cogentin, Celexa, Depakote, Vistaril, and the trazodone as mentioned. Stool is grossly guaiac positive and red on physical examination. There is some rectal skin thickening but no masses within the reach of my finger. The rectum is filled with gas. He carries the diagnosis of schizophrenia as well and has a frightened/anxious affect. Despite the recent complaints of nausea vomiting and inability to eat patient's liver function tests and BUN and creatinine are all within normal limits--he is an albumin of 3.2. The patient had previously undergone evaluation by Dr. Beltran with surgical repair of the left humerus on 11/19/16 with subsequent transfer to [facility] for rehabilitation and subsequent discharge from that facility on 12/05/16. Home Medications Medication Instructions Recorded Confirmed Type Benztropine Tab [Cogentin Tab] 1 mg PO BID 11/18/16 12/09/16 History Citalopram [CeleXA] 20 mg PO DAILY 11/18/16 12/09/16 History Divalproex Sodium 1,500 mg PO BEDTIME 11/18/16 12/09/16 History HydrOXYzine PAMOATE CAP [Vistaril 50 mg PO BEDTIME 11/18/16 12/09/16 History Cap] Trazodone HCl 50 - 100 mg PO QPM 11/18/16 12/09/16 History Allergies Allergy/AdvReac Type Severity Reaction Status Date / Time No Known Allergies Allergy Verified 11/21/16 09:49 Medical,Surgical,& Family Hx - Medical History Cardio: No history of: CAD, Hypertension Psychological: History of: Anxiety Disorders, Bipolar Disorder, Schizophrenia, Psychiatric Problems Neurology: No history of: Brain Aneurysm, Dementia, Seizures Endocrine: History of: Diabetes Mellitus (NIDDM) (non compliant with medications ) No history of: Thyroid Disorder Respiratory: History of: Asthma No history of: Bronchitis, COPD, Lung Cancer Gastrointestinal: History of: GERD, GI Problems (rectal bleeding) No history of: Hemorrhoids Musculoskeletal: History of: Musculoskeletal Problems (frequent falls) Hematology: No history of: Anemia - Surgical History Neurologic Surgeries: Patient denies: Brain Aneurysm, Neurologic Surgery HEENT Surgeries: Patient denies: Tonsilectomy & Adenoidectomy Abdominal Surgeries: Patient denies: Appendectomy, Cholecystectomy Orthopedic Surgeries: Surgical HX of;: Orthopedic Surgery (ORIF and IM nailing of the left humerus) Patient denies;: Total Hip Replacement, Total Knee Replacement - Family History Family History: Reports;: Family Diabetes - Social History Smoking Status: Unknown if ever smoked Frequency of Alcohol Use: Unknown Type of Drug Use: Unknown Review of systems: Constitutional: Denies fever, chills, but positive for a great deal of nausea , and vomiting Eyes: Denies dry eyes, and scleral icterus HENT: Admits to headaches Cardiovascular: Denies acute chest pain and claudication Respiratory: Denies shortness of breath, wheezing, and difficulty breathing, denies cough Gastrointestinal: As noted in the HPI Genitourinary: Denies dysuria and hematuria Neurologic: Denies vision loss, and loss of sensation Musculoskeletal: Admits to some joint swelling, joint stiffness, and muscular weakness Psychiatric: Patient does have both depression and veronica symptoms Heme-Lymph: He does admit to easy bruising, l but no ymph node enlargement or tenderness, night sweats, excessive bleeding Allergies-immunologic: Denies pruritus and rhinorrhea Exam - Constitutional Vitals: Period Temp Pulse Resp BP Sys/Weldon Pulse Ox Last 24 Hr 98.2 F-98.8 F 97-111 18-20 136-143/90-90 98-99 General appearance: mild distress, disheveled, other Exam: The patient is extremely anxious/frightened appearing. - Head Head exam: Present: normocephalic - Eye Eye exam: Present: EOMI Pupils: Present: COREEN - ENT ENT exam: Present: normal exam, other (The patient has extremely carious broken teeth and his front lower arch) - Neck Neck exam: Present: normal inspection. Absent: thyromegaly - Respiratory Respiratory exam: Present: clear to auscultation bilaterally. Absent: rhonchi, stridor, wheezes - Cardiovascular Cardiovascular exam: Present: regular rate and rhythm, systolic murmur - GI/Abdominal GI/Abdominal exam: Present: normal bowel sounds, soft, other (The lema of the rectum appeared thickened. There is a great deal of gas in the rectal vault stool itself is brown mixed with bright red blood and grossly guaiac positive. Sphincter muscles are relatively weak/poor tone.). Absent: distended, guarding , tenderness, rebound - Extremities Exam Extremities exam: Absent: edema - Neurological Exam Neurological exam: Present: alert, oriented X3, CN II-XII intact. Absent: motor sensory deficit - Psychiatric Psychiatric exam: Present: anxious, depressed - Skin Skin exam: Present: warm Results - Labs CBC & BMP: 12/09/16 14:17 12/09/16 14:17
[2016-12-09] MEDS: traZODone 50 MG TABLET PO SCH (20:49)
[2016-12-09] MEDS: BENZTROPINE 1 MG TABLET PO SCH (20:49)
[2016-12-09] MEDS: HydrOXYzine PAMOATE 50 MG CAPSULE PO SCH (20:49)
[2016-12-09] MEDS: DIVALPROEX 500 MG TABLET PO SCH (20:54)
[2016-12-10 05:05] LABS: Basophils # 0.1 10*3/uL (0.0-0.2); Basophils % 1.4 % (0.0-0.8); Eosinophils # 0.1 10*3/uL (0.0-0.87); Eosinophils % 2.1 % (0.00-10.9); Hematocrit 36.2 VOL% (42.0-52.0); Immature Granulocytes % 0.3 %; Immature Granulocytes Absolute 0.02 #; Lymphocytes # 1.9 10*3/uL (1.4-4.0); Lymphocytes % 32.9 % (21.2-54.2); Mean Corpuscular HGB Conc 33.1 GM/DL (32-36); Mean Corpuscular Hemoglobin 29 PG (27-34); Mean Corpuscular Volume 86.8 FL (87-102); Mean Platelet Volume 8.9 FL (9.6-12.0); Monocytes # 0.6 10*3/uL (0.11-0.8); Monocytes % 10.6 % (1.7-12.7); Neutrophils % 52.7 % (38.7-73.9); Platelet Count 312 T/CUMM (130-400); Red Blood Count 4.17 MC/CUMM (3.8-5.5); Red Cell Distribution Width 13.3 % (9.3-17.3); White Blood Count 5.8 T/CUMM (4-12)
[2016-12-10 05:24] LABS: PT Patient Result 10.7 SECS; Partial Thromboplastin Time 29.1 SECS (0-40)
--- NOTE | 2016-12-10 06:00 | EKG Report ---
Stationary ECG Study [facility] Test Date: 12/09/2016 3:42:27 PM Pat Name: ESSENCE BESS Department: Room: 524 Gender: M [employer]: : 1960 Requested by: Saul Correia Order Number: [id number] Michel MD: NIKHIL MORRIS Intervals [place] Rate: 94 P: 79 ID: [id number] QRS: 64 QRSD: 62 T: 60 QT: 337 QTc: 389 Interpretive Statements SINUS RHYTHM Electronically Signed On 12-10-16 09:26:54 CDT by NIKHIL MORRIS [email or web address]
[2016-12-10] MEDS: SODIUM CHLORIDE 0.9% 1,000 ML IV SCH ×4 (06:40→15:41)
--- NOTE | 2016-12-10 07:51 | Operative Note ---
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 This will need suppression of acidity with Protonix twice daily. There was mild gastritis with slight linear component and some erosive duodenitis noted as well. Biopsies were obtained to rule out celiac sprue given the patient's underlying diarrhea.) Procedure: PROCEDURE: Esophagogastroduodenoscopy (EGD) with cold biopsy for pathology REFERRING PHYSICIAN: Dr. Bill Monae MD INDICATIONS: Anemia with hematocrit down to 36% with previous history of melena now with bright red blood per rectum, diarrhea 20 times per day with fecal incontinence the prior H&P was reviewed and interrim changes are as noted : No change from GI consultation on 12/09/16 ENDOSCOPIST: Nathan Lin MD ENDOSCOPE: Olympus Video 100 System upper endoscope ASA CLASS: 3 EXAM: CV: regular rate and rhythm respiratory: Clear without wheezes abdominal: active bowel sounds MEDICATION: Per nursing anesthesia protocol, see their notes PROCEDURE: After discussion of the potential risks and benefits of upper endoscopy, the informed consent was obtained. The patient was then placed in the left lateral decubitus position where sedation was achieved as noted above. Esophageal intubation was performed without difficulty, and the endoscope was advanced through the esophagus, stomach and duodenum. A slow withdrawal was then performed with retroflexion in the stomach for careful inspection of the incisura angularis, fundus and cardia. The scope was then returned to a neutral position and withdrawn through the esophagus. The patient tolerated the procedure well and without complication. BIOPSIES: Biopsies obtained in the esophagus at 26, 28, 30, 32, and 34 cm, gastric antrum/body and duodenum also taken obtained PHOTOGRAPHS: Obtained FINDINGS: Hypopharynx and Larynx: Normal Esohagoscopy Upper and middle thirds: Long segment Rosales's noted running between 24 and 34 centimeters, biopsies taken every 2 cm starting at 26 cm from the incisors. Lower third again the long segment Rosales's was noted between 24 and 34 cm with 2 cm biopsies taken as noted above. At the junction of the hiatal hernia was what appeared to be a Boston's ulcer which was biopsied as well Esophogastric junctions: Boston's ulcer at the EG junction Gastroscopy: Cardia/Fundus: 4 cm hiatal hernia noted Body: Mild diffuse gastritis, biopsied Antrum and pylorus mild diffuse gastritis with linear component but no erosions, biopsied Duodenoscopy: Bulb mild erosive duodenitis in the bulb, biopsied Second and third portions: Normal-appearing. 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 This will need suppression of acidity with Protonix twice daily. There was mild gastritis with slight linear component and some erosive duodenitis noted as well. Biopsies were obtained to rule out celiac sprue given the patient's underlying diarrhea. RECOMMENDATIONS: Follow up for biopsy results in 1-2 weeks by phone [phone] Continue anti-gastroesophageal reflux measures (avoid carbonated and acidic beverages, avoid eating within 2 hours of bedtime, avoid tight fitting clothing , and elevate the front bed posts 6 inches prior to sleeping. This patient will need a repeat upper endoscopy in 3-5 years if no dysplasia seen on today's biopsies. Protonix twice daily will be required for both the Rosales's and the underlying Boston's ulcer. Nathan Lin MD COPY TO: Dr. Bill Monae MD Anesthesia: MAC Surgeon / Physician: Nathan Lin Estimated blood loss: minimal Specimens: other (Esophageal biopsies at 26, 28, 30, 32, and 34 cm in separate cups, gastric antrum/body, duodenum to rule out sprue) Condition: stable Disposition: post procedure unit (G[facility]I. Suite) Results - Labs CBC & BMP: 12/10/16 04:29 12/09/16 14:17 Discharge Plan - Discharge Medications No Action Trazodone HCl 50 - 100 mg PO QPM HydrOXYzine PAMOATE CAP [Vistaril Cap] 50 mg PO BEDTIME Benztropine Tab [Cogentin Tab] 1 mg PO BID Citalopram [CeleXA] 20 mg PO DAILY Divalproex Sodium 1,500 mg PO BEDTIME - Follow Up or Referral - Forms/Instructions
--- NOTE | 2016-12-10 07:54 | Gastrointestinal Progress Note ---
Assessment and Plan (1) GI bleeding Status: Acute Assessment and plan: The picture is a confusing one as he has had both black stools which may be due to Pepto-Bismol or upper GI tract bleeding and more recently rectal bleeding that is bright red which may be secondary to brisk ulcer bleeding although this is usually associated with tachycardia and a greater drop in the patient's hematocrit which at this point appears negligible. I strongly suspect he has rectal bleeding from either colitis or hemorrhoidal bleeding and at the earlier lack stools may been secondary to gastric erosions or perhaps even just the Pepto-Bismol he had been taking to make his stomach feel better. This patient has a remarkable amount of anxiety which certainly may lead to gastric erosions and/or ulcerations. I will start him on some Protonix if this is not already been initiated. Risks of the procedures include but are not limited to: Bleeding, infection, perforation, cardiac and pulmonary compromise. 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 We will look for lower GI sources as well. Note that this patient has not dropped his hematocrit significantly, currently down to 36%. Biopsies are pending to look at the esophagus for dysplasia given the long segment of Rosales's seen, noted to be 10 cm. Current Visit: Yes (2) Diarrhea Status: Acute Assessment and plan: Because of the patient's diarrhea remains unclear. This may be due to a previous C. difficile infection over or due to antibiotic exposure over the last several weeks, will check standard stool cultures and C. difficile and I do plan to do a colonoscopy for the patient leaves the hospital after we establish the findings of the upper GI tract. We will likely do this on . The patient's Depakote level is normal equals 56 (normal equals 50 -100)--this is the medication on the patient's list most likely producing diarrhea at 7-23%, contrary to his opinion, trazodone typically produces constipation in the vast majority of patients. Further recommendations post discovery of stool culture results and colonoscopy. We will undoubtedly performed biopsies to look for the various types of colitis including microscopic and collagenous. 12/10/16--Colonoscopy tomorrow as planned. Clear liquid diet today. Current Visit: Yes (3) Nausea & vomiting Status: Acute Assessment and plan: I suspect this patient probably has some degree of erosive gastritis although is not complaining of any pain. He has chronic nausea and vomiting. This may have more to do with his anxiety than other issues. He is followed at [facility], and is on Celexa to help with his anxiety. He must be able to tolerate his medications to some degree as he has a normal Depakote level. We will continue to observe the amount that he is eating and having bowel movements. I have asked the nurses to focus on these issues for me and document in the chart. 12/10/16--this patient does have what appears to be erosive duodenitis as well as severe Rosales's and esophageal ulcer that is probably associated with Bostno's ulcer atop a hiatal hernia. This may be a source of his melena and possibly some of his nausea vomiting. Protonix twice daily is suggested ongoing for the rest of his life given the Rosales's seen. Current Visit: Yes (4) Fecal incontinence Status: Acute Assessment and plan: This may likely improve as the patient's diarrhea improves. Lomotil will help, once we have an etiology for the diarrhea. 12/10/16--we will be performing colonoscopy tomorrow to determine if there is cancer present or colitis and what type. 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 Patient will need a repeat upper endoscopy in about 3-5 years depending on pathology, sooner if dysplasia is found. Current Visit: Yes Gastroenterology - PN: Subj Interval history: No new complaints, patient's abdominal pain is unchanged. He appears to be marginally better. His hematocrit is only dropped to 36%. Exam (Progress Note) - Constitutional Vitals: Period Temp Pulse Resp BP Sys/Weldon Pulse Ox Last 24 Hr 97.5 F-98.8 F 69-111 14-20 87-143/44-93 95-99 General appearance: mild distress - Head Head exam: Present: normocephalic, atraumatic - Eye Eye exam: Present: EOMI Pupils: Present: COREEN - Respiratory Respiratory exam: Present: clear to auscultation bilaterally. Absent: rhonchi, stridor, wheezes - Cardiovascular Cardiovascular exam: Present: regular rate and rhythm. Absent: systolic murmur - GI/Abdominal GI/Abdominal exam: Present: normal bowel sounds, tenderness (Epigastric pain), soft. Absent: distended, guarding, rebound - Neurological Exam Neurological exam: Present: alert, oriented X3, CN II-XII intact. Absent: motor sensory deficit - Psychiatric Psychiatric exam: Present: normal affect, normal mood Results - Labs CBC & BMP: 12/10/16 04:29 12/09/16 14:17
--- NOTE | 2016-12-10 08:05 | Anesthesia Post-Op ---
Anesthesia Post OP - Post Ansesthetic Evaluation Patient seen in post op: Yes Resp: within normal limits CV: within normal limits Mental: within normal limits Temp: within normal limits Wlmi-[id number]-Aaqsmesvr: within normal limits Nausea and Vomiting: within normal limits Pain: within normal limits
--- NOTE | 2016-12-10 08:41 | Hospitalist Progress Note ---
Assessment and Plan (1) GI bleeding Status: Acute Assessment and plan: Patient has presented with painless GI bleed both melena and fresh blood per rectum. He underwent EGD today and noted to have Rosales's esophagus, hiatal hernia with Boston's ulcer, mild gastritis and some erosive duodenitis biopsies were taken and pending GI plan to do colonoscopy tomorrow for further evaluation. Noted hematocrit is down only slightly. Will continue to monitor. Continue Protonix 40 mg IV twice daily Current Visit: Yes (2) Anemia Status: Acute Assessment and plan: Mild anemia with drop in hematocrit slightly from yesterday the keep monitor. Patient is being workup for GI bleed Current Visit: Yes (3) IDDM (insulin dependent diabetes mellitus) Status: Chronic Assessment and plan: Continue monitor blood glucose. His home medication not listed to have any insulin will check on that Current Visit: No Hospitalist: Subjective Interval history: Patient states that he continued to have rectal bleeding. He had one this morning with bowel movement. Denies any abdominal pain. He underwent EGD this morning and reported to have a long segment of Rosales's esophagus which was biopsied in addition was finding of hiatal hernia with Boston's ulcer. Biopsies were obtained. GI and to do colonoscopy tomorrow Exam - Constitutional Vitals: Period Temp Pulse Resp BP Sys/Weldon Pulse Ox Last 24 Hr 97.5 F-98.8 F 69-111 14-20 87-143/44-93 95-99 General appearance: no acute distress - Respiratory Respiratory exam: Present: clear to auscultation bilaterally. Absent: rales, rhonchi - Cardiovascular Cardiovascular exam: Present: regular rate and rhythm. Absent: tachycardia - GI/Abdominal GI/Abdominal exam: Present: normal bowel sounds, soft. Absent: tenderness - Extremities Exam Extremities exam: Present: normal inspection. Absent: edema - Neurological Exam Neurological exam: Present: alert - Skin Skin exam: Present: normal color, warm Results - Labs CBC & BMP: 12/10/16 04:29 12/09/16 14:17 Lab Results: I have reviewed the past 24 hour labs
[2016-12-10] MEDS ORDERED: GLUCAGON 1 MG VIAL IM PRN (08:48)
[2016-12-10] MEDS ORDERED: DEXTROSE 50% 25 GM/50 ML VIAL IV PRN (08:48)
[2016-12-10] MEDS: INSULIN REGULAR 100 UNIT/ML SUBCUT SCH ×4 (08:59→21:34)
[2016-12-10] MEDS: BENZTROPINE 1 MG TABLET PO SCH ×2 (09:48→21:35)
[2016-12-10] MEDS: BISACODYL 5 MG TABLET PO SCH ×2 (09:48→15:40)
[2016-12-10] MEDS: CITALOPRAM 20 MG TABLET PO SCH (09:48)
[2016-12-10] MEDS: PANTOPRAZOLE 40 MG VIAL IV SCH (09:48)
--- NOTE | 2016-12-10 14:25 | Case Mgmt Physician Query Form ---
TB Signs and Symptoms Screening ([place]) INSTRUCTIONS: To be completed annually on residents/staff with a significant Tuberculin Skin Test (TST) upon admission/hire or a prior significant TST. To be completed on all staff at hire. Please respond to each listed symptom with an (X) in either the "YES" or "NO" box. Do you currently have any of the following symptoms: YES NO ( ) ( x) A cough If yes, is it: ( ) Productive ( ) Non- productive ( ) (x ) Hemoptysis (spitting up blood) ( ) (x ) Chest pains ( ) (x ) Weight Loss ( ) ( x) Fever ( ) ( x) Night Sweats ( ) ( x) Weakness ( ) (x ) Loss of Appetite ( ) ( x) Difficulty Breathing If you answered YES" to any of the above questions, how long have symptoms been present? Comments: If you have any questions, please contact me . Thank you, Prerna GROVES Email: [email or web address] [facility]
[2016-12-10] MEDS ORDERED: TUBERCULIN SKIN TEST 0.1 ML SYRINGE INTRADERM ONE (15:30)
[2016-12-10] MEDS ORDERED: POLYETHYLENE GLYCOL POWDER 255 GM BOTTLE PO ONE (18:00)
[2016-12-10] MEDS ORDERED: MAGNESIUM CITRATE 300 ML BOTTLE PO ONE (21:00)
[2016-12-10] MEDS: DIVALPROEX 500 MG TABLET PO SCH (21:35)
[2016-12-10] MEDS: traZODone 50 MG TABLET PO SCH (21:35)
[2016-12-10] MEDS: HydrOXYzine PAMOATE 50 MG CAPSULE PO SCH (21:35)
[2016-12-11] MEDS: BISACODYL 5 MG TABLET PO SCH (00:02)
[2016-12-11] MEDS: SODIUM CHLORIDE 0.9% 1,000 ML IV SCH ×4 (00:39→23:38)
[2016-12-11 07:18] LABS: Hematocrit 39.9 VOL% (42.0-52.0); Hemoglobin 13.2 GM/DL (14.0-18.0)
--- NOTE | 2016-12-11 07:30 | Operative Note ---
Date of procedure: 12/11/16 Pre-op diagnosis: Diarrhea 20 times per day, anemia with hematocrit 36% Post-op diagnosis: other (This patient is rectal bleeding likely due to prolapse or proctitis in the rectum, biopsies are pending to look and see if this is ulcerative proctitis. Patient also has the appearance of colitis up higher than the colon biopsies are pending looking at this. 2 polyps were noted in the transverse and proximal ascending colon, a single AVM was noted in the cecum that was cauterized with argon plasma coagulation for hemostasis as well. The colon did have the appearance of melanosis coli incidentally as well indicating prior laxative abuse.) Procedure: PROCEDURE: Colonoscopy with cold biopsy for pathology, hot biopsy polypectomy and argon plasma coagulation for hemostasis REFERRING PHYSICIAN: Bill Monae MD INDICATIONS: Diarrhea some 20 times per day by report, anemia with hematocrit 36%, some bright red blood per rectum at times, and fecal incontinence. The prior H&P was reviewed and interrim changes are as noted: No change from GI consultation earlier this admission ENDOSCOPIST: Nathan Lin MD ENDOSCOPE: Olympus Video 100 System colonoscope COLON PREPARATION: 238 gm of PEG containing laxative and 1.9 liters of gatoraid/sports drink and dulcolax 15 mg q8 hours x 3 ASA CLASS: 3 EXAM: CV: regular rate and rhythm Respiratory: Clear without wheezes Abdominal: active bowel sounds Rectal: Good tone, no fissures or fistulas MEDICATION: Per nursing anesthesia protocol, see their notes PROCEDURE: After discussion of the potential risks and benefits of colonoscopy, the informed consent was obtained, from patient or health care surrogate. The patient was then placed in the left lateral decubitus position where sedation was achieved as noted above. Rectal examination was followed by insertion of the colonoscope. The colonoscope was passed under direct visualization to the cecum. Advancement was facilitated by insertion/withdrawl techniques, abdominal pressure and patient positioning. Once the cecal pole was reached, slow withdrawal was performed with the findings as noted below. The patient tolerated the procedure well and without complication. QUALITY OF PREP: Excellent WITHDRAWL TIME: 12 minutes 13 seconds BIOPSIES: Cecum/ascending with ascending polyp, transverse polyp, rectosigmoid biopsies and rectal proctitis biopsies PHOTOGRAPHS: Obtained FINDINGS: The musoca appeared normal in the following regions: descending colon, splenic flexure, and hepatic flexure Position within the cecum was confirmed by ileocecal valve, appendiceal oriface, and the convergence of folds (crows foot). No mass was noted throughout the colon. No diverticulosis noted. There was a single large 2 cm AVM noted at the cecum that was cauterized with argon plasma coagulation with good hemostasis. Routine biopsies were taken in the ascending and cecal regions to rule out colitis. The patient did have an area of colitis involving the rectum (proctitis with slight ulcerated/ischemic appearing area here that may have been in association with a rectal prolapse) biopsies were taken. There was also a segment of sigmoid that was involved with colitis and biopsies were taken here. Patient had a colon that had a slightly pigmented appearance consistent with melanosis coli as well. There was a 6 mm polyp noted in the proximal descending colon removed by hot biopsy and a second 7 mm polyp removed by hot biopsy in the transverse colon. Intubation of the TI was achieved x 5 cm with normal appearence IMPRESSION: This patient is rectal bleeding likely due to prolapse or proctitis in the rectum, biopsies are pending to look and see if this is ulcerative proctitis. Patient also has the appearance of colitis up higher than the colon biopsies are pending looking at this. 2 polyps were noted in the transverse and proximal ascending colon, a single AVM was noted in the cecum that was cauterized with argon plasma coagulation for hemostasis as well. The colon did have the appearance of melanosis coli incidentally as well indicating prior laxative abuse. RECOMMENDATIONS: High fiber diet Repeat colonosocopy will be in 3 years for greater than 3 adenomas, 5 years for 1-3 adenomas, or 10 years for hyperplastic polyps (only) or if no polyps discovered. Citrucel 1 tablespoon in 12 oz juice BID: 1 bottle: :11 Follow up by phone for biopsy results in 1-2 weeks by phone We will treat colitis depending on type. Nathan Lin MD COPY TO: Bill Monae MD Anesthesia: MAC Surgeon / Physician: Nathan Lin Estimated blood loss: minimal Specimens: other (cecum/ascending/descending/sigmoid, transverse polyp, rectal proctitis biopsies as well) Condition: stable Disposition: post procedure unit (G[facility]I. Suite) Results - Labs CBC & BMP: 12/10/16 04:29 12/09/16 14:17 Discharge Plan - Discharge Medications No Action Trazodone HCl 50 - 100 mg PO QPM HydrOXYzine PAMOATE CAP [Vistaril Cap] 50 mg PO BEDTIME Benztropine Tab [Cogentin Tab] 1 mg PO BID Citalopram [CeleXA] 20 mg PO DAILY Divalproex Sodium 1,500 mg PO BEDTIME - Follow Up or Referral - Forms/Instructions
[2016-12-11] MEDS ORDERED: PROPOFOL 200 MG/20 ML VIAL IV ONE (07:32)
[2016-12-11] MEDS ORDERED: LIDOCAINE 1% 5 ML VIAL ONE (07:32)
--- NOTE | 2016-12-11 07:34 | Gastrointestinal Progress Note ---
Assessment and Plan (1) GI bleeding Status: Acute Assessment and plan: The picture is a confusing one as he has had both black stools which may be due to Pepto-Bismol or upper GI tract bleeding and more recently rectal bleeding that is bright red which may be secondary to brisk ulcer bleeding although this is usually associated with tachycardia and a greater drop in the patient's hematocrit which at this point appears negligible. I strongly suspect he has rectal bleeding from either colitis or hemorrhoidal bleeding and at the earlier lack stools may been secondary to gastric erosions or perhaps even just the Pepto-Bismol he had been taking to make his stomach feel better. This patient has a remarkable amount of anxiety which certainly may lead to gastric erosions and/or ulcerations. I will start him on some Protonix if this is not already been initiated. Risks of the procedures include but are not limited to: Bleeding, infection, perforation, cardiac and pulmonary compromise. 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 We will look for lower GI sources as well. Note that this patient has not dropped his hematocrit significantly, currently down to 36%. Biopsies are pending to look at the esophagus for dysplasia given the long segment of Rosales's seen, noted to be 10 cm. 12/11/16--the patient may have also had in addition to the Boston's ulcer noted above a large AVM in the cecum that was cauterized with argon plasma coagulation. The patient had 2 other polyps were incidentally removed. He had the appearance of proctitis as well in the rectum that may have more to do with his fecal incontinence and possible rectal prolapse. Biopsies are pending. We will treat colitis depending on type. The patient can be discharged from my standpoint but would suggest a detention facility given his debilitation. Current Visit: Yes (2) Diarrhea Status: Acute Assessment and plan: Because of the patient's diarrhea remains unclear. This may be due to a previous C. difficile infection over or due to antibiotic exposure over the last several weeks, will check standard stool cultures and C. difficile and I do plan to do a colonoscopy for the patient leaves the hospital after we establish the findings of the upper GI tract. We will likely do this on . The patient's Depakote level is normal equals 56 (normal equals 50 -100)--this is the medication on the patient's list most likely producing diarrhea at 7-23%, contrary to his opinion, trazodone typically produces constipation in the vast majority of patients. Further recommendations post discovery of stool culture results and colonoscopy. We will undoubtedly performed biopsies to look for the various types of colitis including microscopic and collagenous. 12/10/16--Colonoscopy tomorrow as planned. Clear liquid diet today. 12/11/16--Patient does appear to have some colitis through the colon and may benefit from use of Cipro 500 mg twice daily for a period of 7-10 days, at least if this ends up being an infectious colitis biopsies are pending at this time. Current Visit: Yes (3) Nausea & vomiting Status: Acute Assessment and plan: I suspect this patient probably has some degree of erosive gastritis although is not complaining of any pain. He has chronic nausea and vomiting. This may have more to do with his anxiety than other issues. He is followed at [facility], and is on Celexa to help with his anxiety. He must be able to tolerate his medications to some degree as he has a normal Depakote level. We will continue to observe the amount that he is eating and having bowel movements. I have asked the nurses to focus on these issues for me and document in the chart. 12/10/16--this patient does have what appears to be erosive duodenitis as well as severe Rosales's and esophageal ulcer that is probably associated with Boston's ulcer atop a hiatal hernia. This may be a source of his melena and possibly some of his nausea vomiting. Protonix twice daily is suggested ongoing for the rest of his life given the Rosales's seen. 12/11/16--this appears to be under control for the present time. Patient is going to need Protonix twice a day as noted above. Current Visit: Yes (4) Fecal incontinence Status: Acute Assessment and plan: This may likely improve as the patient's diarrhea improves. Lomotil will help, once we have an etiology for the diarrhea. 12/10/16--we will be performing colonoscopy tomorrow to determine if there is cancer present or colitis and what type. 12/11/16--observe for recurrence. Could benefit from Anusol suppositories twice daily. 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 Patient will need a repeat upper endoscopy in about 3-5 years depending on pathology, sooner if dysplasia is found. 12/11/16--awaiting biopsy results. Will need repeat upper endoscopy in 3-5 years typically if no dysplasia is seen. Current Visit: Yes Gastroenterology - PN: Subj Interval history: No new complaints Exam (Progress Note) - Constitutional Vitals: Period Temp Pulse Resp BP Sys/Weldon Pulse Ox Last 24 Hr 97.6 F-98.5 F 72-93 16-18 106-140/59-78 95-99 General appearance: no acute distress - Head Head exam: Present: normocephalic, atraumatic - Eye Eye exam: Present: EOMI Pupils: Present: COREEN - Respiratory Respiratory exam: Present: clear to auscultation bilaterally - Cardiovascular Cardiovascular exam: Present: regular rate and rhythm - GI/Abdominal GI/Abdominal exam: Present: normal bowel sounds, distended, tenderness (Mild diffuse), soft. Absent: rebound - Back Exam Back exam: Present: normal inspection - Neurological Exam Neurological exam: Present: alert, oriented X3 - Psychiatric Psychiatric exam: Present: normal affect, normal mood - Skin Skin exam: Present: warm Results - Labs CBC & BMP: 12/11/16 05:02 12/09/16 14:17
--- NOTE | 2016-12-11 08:02 | Anesthesia Post-Op ---
Anesthesia Post OP - Post Ansesthetic Evaluation Patient seen in post op: Yes Resp: within normal limits CV: within normal limits Mental: within normal limits Temp: within normal limits [id number]: within normal limits Nausea and Vomiting: within normal limits Pain: within normal limits
[2016-12-11] MEDS: INSULIN REGULAR 100 UNIT/ML SUBCUT SCH ×4 (10:02→20:31)
--- NOTE | 2016-12-11 10:33 | Hospitalist Progress Note ---
Assessment and Plan (1) GI bleeding Status: Acute Assessment and plan: Patient presented with a GI bleeding but his hematocrit has been stable. He had painless GI bleed both melena and fresh blood per rectum and continue to report bleeding per rectum. Painless GI bleed both melena and fresh blood per rectum. He underwent EGD today and noted to have Rosales's esophagus, hiatal hernia with Boston's ulcer, mild gastritis and some erosive duodenitis biopsies were taken and pending GI plan to do colonoscopy tomorrow for further evaluation. Noted hematocrit is down only slightly. He is on PPI. Not colonoscopy today showed large AVM in the cecum which was cauterized. He had some polyps as well as tightness in the rectum biopsies were done and pending. Current Visit: Yes (2) Anemia Status: Acute Assessment and plan: Hemoglobin hematocrit stable from admission Current Visit: Yes (3) IDDM (insulin dependent diabetes mellitus) Status: Chronic Assessment and plan: Continue monitor blood glucose. It is at goal at present Current Visit: No (4) Discharge planning issues Status: Acute Assessment and plan: Patient is interested in going to detention/skilled facility. shine worker is working on that will follow the outcome Current Visit: Yes Hospitalist: Subjective Interval history: Patient underwent colonoscopy today. He continued to have bleeding per rectum no abdominal pain. [place] from the psychiatric social worker patient interested in going to detention Exam - Constitutional Vitals: Period Temp Pulse Resp BP Sys/Weldon Pulse Ox Last 24 Hr 97.7 F-98.5 F 61-93 16-18 106-150/61-92 95-100 General appearance: no acute distress - Respiratory Respiratory exam: Present: clear to auscultation bilaterally. Absent: rales, rhonchi - Cardiovascular Cardiovascular exam: Present: regular rate and rhythm. Absent: tachycardia - GI/Abdominal GI/Abdominal exam: Present: normal bowel sounds, soft. Absent: tenderness - Extremities Exam Extremities exam: Present: normal inspection. Absent: edema - Neurological Exam Neurological exam: Present: alert - Skin Skin exam: Present: normal color, warm Results - Labs CBC & BMP: 12/11/16 05:02 12/09/16 14:17 Lab Results: I have reviewed the past 24 hour labs
[2016-12-11] MEDS: PANTOPRAZOLE 40 MG VIAL IV SCH (10:58)
[2016-12-11] MEDS: CITALOPRAM 20 MG TABLET PO SCH (10:58)
[2016-12-11] MEDS: BENZTROPINE 1 MG TABLET PO SCH ×2 (10:58→20:30)
--- NOTE | 2016-12-11 13:17 | XRay Report ---
2 view chest. Indication: Shortness of breath. Comparison: November 18, 2016. The heart is normal in size. The lung goldstein are clear. No pneumothorax or pleural effusion. Multiple healed rib fractures bilaterally. Gaseous distention of bowel. Exaggerated kyphosis of the thoracic spine. Impression: No acute cardiopulmonary abnormality is seen. PROCEDURE INTERPRETED AT [facility] DEPARTMENT OF RADIOLOGY Final Report Signed by: Dr. Park Borja
--- NOTE | 2016-12-11 18:19 | Pathology Report from [facility] ---
[facility] [place] ACCESSION # : [id number] PATIENT NAME : Essence Resendiz ORDERING DR : Nathan Lin MD CLINICAL HX: GI Bleed - Anemia - Diarrhea POST-OP DX: #1 Diarrhea #2 Gastritis #3 Barretts SPECIMEN INFO: #1 Duodenum biopsy ? Sprue #2 Gastric ARNOLD #3 Esophageal @ 34 cm #4 Esophageal @ 32 cm #5 Esophageal @ 30 cm #6 Esophageal @ 28 cm #7 Esophageal @ 26 cm GROSS DESCRIPTION: Received in formalin in seven parts labeled:#1 ESSENCE RESENDIZ & #1 is a 0.6 x 0.5 cm aggregate of gant tissue submitted in cassette #1.#2 ESSENCE RESENDIZ & #2 is a 0.6 x 0.4 cm aggregate of gant tissue submitted in cassette #2.#3 ESSENCE RESENDIZ & #3 is a 0.6 x 0.3 cm aggregate of gant tissue submitted in cassette #3.#4 ESSENCE RESENDIZ & #4 consists of two gant tissue fragments measuring 0.4 x 0.3 cm collectively submitted in cassette #4.#5 ESSENCE RESENDIZ & #5 are two gant tissue fragments measuring 0.6 x 0.2 cm collectively, submitted in cassette #5.#6 ESSENCE RESENDIZ & #6 is a 0.5 x 0.3 cm aggregate of gant tissue submitted in cassette #6.#7 ESSENCE RESENDIZ & #7 is a 0.6 x 0.2 cm aggregate of gant tissue submitted in cassette #7. DIAGNOSIS FOR ESSENCE RESENDIZ: #1 DUODENAL BIOPSIES: Unremarkable duodenal mucosa with normal villous architecture and no organisms or intraepithelial lymphocytosis.#2 GASTRIC BIOPSIES: Mild chronic superficial gastritis. H. pylori not seen on H&E or special stain with appropriate control.#3 ESOPHAGEAL BIOPSIES (34 cm): Specialized columnar epithelium of Barretts mucosa, negative for dysplasia.#4 ESOPHAGEAL BIOPSIES (32 cm): Specialized columnar epithelium of Barretts mucosa, negative for dysplasia.#5 ESOPHAGEAL BIOPSIES (30 cm): Specialized columnar epithelium of Barretts mucosa, negative for dysplasia.#6 ESOPHAGEAL BIOPSIES (28 cm): Specialized columnar epithelium of Barretts mucosa , negative for dysplasia.#7 ESOPHAGEAL BIOPSIES (26 cm): Specialized columnar epithelium of Barretts mucosa, negative for dysplasia. COLLECTED DATE: 12/10/2016 [facility] REPORT DATE: 12/11/2016 ELECTRONICALLY SIGNED BY: Preston Calvo M.D. 12/11/2016 - 9:22:29 SONY
[2016-12-11] MEDS: DIVALPROEX 500 MG TABLET PO SCH (20:30)
[2016-12-11] MEDS: traZODone 50 MG TABLET PO SCH (20:30)
[2016-12-11] MEDS: HydrOXYzine PAMOATE 50 MG CAPSULE PO SCH (20:30)
[2016-12-12 06:38] LABS: Hematocrit 32.3 VOL% (42.0-52.0)
[2016-12-12 06:47] LABS: Hemoglobin 10.9 GM/DL (14.0-18.0)
[2016-12-12] MEDS: INSULIN REGULAR 100 UNIT/ML SUBCUT SCH ×4 (08:33→20:54)
[2016-12-12] MEDS: SODIUM CHLORIDE 0.9% 1,000 ML IV SCH ×2 (08:34→20:52)
[2016-12-12] MEDS: BENZTROPINE 1 MG TABLET PO SCH ×2 (08:35→20:53)
[2016-12-12] MEDS: CITALOPRAM 20 MG TABLET PO SCH (08:35)
[2016-12-12] MEDS: PANTOPRAZOLE 40 MG VIAL IV SCH (09:45)
--- NOTE | 2016-12-12 13:26 | Hospitalist Progress Note ---
Assessment and Plan (1) Gastrointestinal hemorrhage with melena Status: Acute Assessment and plan: We will gently rehydrate, start PPIs, DVT prophylaxis, promote bowel rest, and consult gastroenterology to evaluate and treat. I have reviewed the patient's home medication none of which are commonly associated with the risk for the development of melena. 12/12-colonoscopy on yesterday revealed large AVM in the cecum which was cauterized. In addition, the patient was noted to have some polyps as well as tightness in the rectum biopsies were obtained results are pending. Hemoglobin and hematocrit are stable today at 10.9/32.3. Current Visit: Yes (2) IDDM (insulin dependent diabetes mellitus) Status: Chronic Assessment and plan: We will monitor the patient's blood sugars. Start Accu-Cheks with sliding scale coverage and obtain hemoglobin A1c. Current Visit: No (3) History of bipolar disorder Status: Acute Assessment and plan: We will resume the patient's home medication regimen. Will obtain valproic acid level. 12/12-Valproic acid noted at 56.0. We will continue valproic acid and all home medications as previously ordered. Current Visit: No Hospitalist: Subjective Interval history: Patient seen and examined; no significant overnight events. Chart reviewed. No episodes of melena reported. Case management consulted on yesterday for possible SNF placement. Awaiting SNF placement. Exam - Constitutional Vitals: Period Temp Pulse Resp BP Sys/Weldon Pulse Ox Last 24 Hr 97.2 F-98.5 F 67-90 18-20 99-148/60-79 93-97 General appearance: normal weight, no acute distress - Head Head exam: Present: normal inspection, normocephalic, atraumatic - Eye Eye exam: Present: EOMI, conjunctival injection Pupils: Present: COREEN, normal accommodation - ENT ENT exam: Present: normal exam, normal external ear exam, normal oropharynx - Neck Neck exam: Present: normal inspection. Absent: lymphadenopathy, meningismus, tenderness, thyromegaly - Respiratory Respiratory exam: Present: clear to auscultation bilaterally. Absent: rales, rhonchi, stridor, wheezes - Cardiovascular Cardiovascular exam: Present: regular rate and rhythm. Absent: carotid bruit, diastolic murmur, gallop, JVD, rubs, systolic murmur - GI/Abdominal GI/Abdominal exam: Present: normal bowel sounds, soft. Absent: distended, guarding - Extremities Exam Extremities exam: Present: normal inspection, normal capillary refill, full ROM. Absent: edema - Back Exam Back exam: Present: normal inspection - Neurological Exam Neurological exam: Present: alert, oriented X3 - Psychiatric Psychiatric exam: Present: flat affect - Skin Skin exam: Present: normal color, warm, dry Results - Labs CBC & BMP: 12/12/16 05:58 12/09/16 14:17 Lab Results: I have reviewed the past 24 hour labs
--- NOTE | 2016-12-12 18:59 | Gastrointestinal Progress Note ---
Assessment and Plan (1) GI bleeding Status: Acute Assessment and plan: The picture is a confusing one as he has had both black stools which may be due to Pepto-Bismol or upper GI tract bleeding and more recently rectal bleeding that is bright red which may be secondary to brisk ulcer bleeding although this is usually associated with tachycardia and a greater drop in the patient's hematocrit which at this point appears negligible. I strongly suspect he has rectal bleeding from either colitis or hemorrhoidal bleeding and at the earlier lack stools may been secondary to gastric erosions or perhaps even just the Pepto-Bismol he had been taking to make his stomach feel better. This patient has a remarkable amount of anxiety which certainly may lead to gastric erosions and/or ulcerations. I will start him on some Protonix if this is not already been initiated. Risks of the procedures include but are not limited to: Bleeding, infection, perforation, cardiac and pulmonary compromise. 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 We will look for lower GI sources as well. Note that this patient has not dropped his hematocrit significantly, currently down to 36%. Biopsies are pending to look at the esophagus for dysplasia given the long segment of Rosales's seen, noted to be 10 cm. 12/11/16--the patient may have also had in addition to the Boston's ulcer noted above a large AVM in the cecum that was cauterized with argon plasma coagulation. The patient had 2 other polyps were incidentally removed. He had the appearance of proctitis as well in the rectum that may have more to do with his fecal incontinence and possible rectal prolapse. Biopsies are pending. We will treat colitis depending on type. The patient can be discharged from my standpoint but would suggest a correction facility given his debilitation. 12/12/16--this patient as to potential bleeding sources in the upper GI tract the Boston's ulcer at the EG junction in addition to the large AVM in the cecum now status post treatment. Patient's symptoms appear to be doing better and his bowel movements are slowing down. We have yet to see what the pathology from the rectosigmoid area showing the colitis demonstrates. If this is ulcerative proctitis the patient may need mesalamine however I suspect this is probably more likely to show prolapse changes and he may benefit more from use of Levsin to slow down the GI tract to the point where his bowel movements are more tolerable. 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 He will need a repeat upper endoscopy in 3 years. Current Visit: Yes (2) Diarrhea Status: Acute Assessment and plan: Because of the patient's diarrhea remains unclear. This may be due to a previous C. difficile infection over or due to antibiotic exposure over the last several weeks, will check standard stool cultures and C. difficile and I do plan to do a colonoscopy for the patient leaves the hospital after we establish the findings of the upper GI tract. We will likely do this on . The patient's Depakote level is normal equals 56 (normal equals 50 -100)--this is the medication on the patient's list most likely producing diarrhea at 7-23%, contrary to his opinion, trazodone typically produces constipation in the vast majority of patients. Further recommendations post discovery of stool culture results and colonoscopy. We will undoubtedly performed biopsies to look for the various types of colitis including microscopic and collagenous. 12/10/16--Colonoscopy tomorrow as planned. Clear liquid diet today. 12/11/16--Patient does appear to have some colitis through the colon and may benefit from use of Cipro 500 mg twice daily for a period of 7-10 days, at least if this ends up being an infectious colitis biopsies are pending at this time. 12/12/16--patient has colon biopsies still pending. He is doing well on the low residue, lactose-free diet is now down to about 4 bowel movements per day. Continue to observe and do the biopsy results are back or until he is transferred to a correction facility. I can certainly contact him with his biopsy results when these return after discharge Current Visit: Yes (3) Nausea & vomiting Status: Acute Assessment and plan: I suspect this patient probably has some degree of erosive gastritis although is not complaining of any pain. He has chronic nausea and vomiting. This may have more to do with his anxiety than other issues. He is followed at [facility], and is on Celexa to help with his anxiety. He must be able to tolerate his medications to some degree as he has a normal Depakote level. We will continue to observe the amount that he is eating and having bowel movements. I have asked the nurses to focus on these issues for me and document in the chart. 12/10/16--this patient does have what appears to be erosive duodenitis as well as severe Rosales's and esophageal ulcer that is probably associated with Boston's ulcer atop a hiatal hernia. This may be a source of his melena and possibly some of his nausea vomiting. Protonix twice daily is suggested ongoing for the rest of his life given the Rosales's seen. 12/11/16--this appears to be under control for the present time. Patient is going to need Protonix twice a day as noted above. 12/12/16--No further nausea vomiting. Current Visit: Yes (4) Fecal incontinence Status: Acute Assessment and plan: This may likely improve as the patient's diarrhea improves. Lomotil will help, once we have an etiology for the diarrhea. 12/10/16--we will be performing colonoscopy tomorrow to determine if there is cancer present or colitis and what type. 12/11/16--observe for recurrence. Could benefit from Anusol suppositories twice daily. 12/12/16--We will see how the patient does on Levsin. We can certainly advance this to Lomotil if he is still having episodes of fecal incontinence. 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 Patient will need a repeat upper endoscopy in about 3-5 years depending on pathology, sooner if dysplasia is found. 12/11/16--awaiting biopsy results. Will need repeat upper endoscopy in 3-5 years typically if no dysplasia is seen. 12/12/16--patient will need repeat upper endoscopy in 3 years for this long segment Rosales's confirmed to have no dysplasia on recent pathology and is returned today. Current Visit: Yes Gastroenterology - PN: Subj Interval history: Patient states that he is gotten down to about 4 bowel movements per day. He is on a low lactose diet, otherwise he seems fairly resigned to going to a correction facility and we did talk about how this would benefit from a hygiene standpoint and a health maintenance standpoint. Exam (Progress Note) - Constitutional Vitals: Period Temp Pulse Resp BP Sys/Weldon Pulse Ox Last 24 Hr 97.2 F-98.5 F 67-86 18-20 108-155/60-86 93-97 General appearance: mild distress - Head Head exam: Present: normocephalic, atraumatic - Eye Eye exam: Present: EOMI Pupils: Present: COREEN - Respiratory Respiratory exam: Present: clear to auscultation bilaterally - Cardiovascular Cardiovascular exam: Present: regular rate and rhythm - GI/Abdominal GI/Abdominal exam: Present: normal bowel sounds, tenderness (Mild diffuse tenderness), soft. Absent: distended, guarding, rebound - Neurological Exam Neurological exam: Present: alert, oriented X3, CN II-XII intact. Absent: motor sensory deficit - Psychiatric Psychiatric exam: Present: normal affect, normal mood - Skin Skin exam: Present: warm Results - Labs CBC & BMP: 12/12/16 05:58 12/09/16 14:17
--- NOTE | 2016-12-12 19:27 | Pathology Report from [facility] ---
[facility] ACCESSION # : [id number] PATIENT NAME : Horacio Resendiz ORDERING DR : Nathan Lin MD CLINICAL HX: Diarrhea - Anemia - Appearance of melanosis coli POST-OP DX: #1 Colon polyp #2 Descending/sigmoid biopsy #3 Polyp #4 Proctitis SPECIMEN INFO: #1 Polyp ascending & cecal/ascending random biopsy #2 Descending /sigmoid biopsy #3 Colon transverse polyp #4 Distal rectum GROSS DESCRIPTION: #1 HORACIO RESENDIZ received in formalin is a 0.6 x 0.5 cm aggregate of gant tissue. Submitted in #1.#2 Received in formalin labeled with the patients name HORACIO RESENDIZ and #2 consists of a 0.9 x 0.4 cm aggregate of gant tissue. Submitted in cassette #2.#3 Received in formalin labeled with the patients name HORACIO RESENDIZ and #3 consists of a 0.3 x 0.3 cm gant tissue fragment. Submitted in cassette #3.#4 Received in formalin labeled with the patients name HORACIO RESENDIZ and #4 consists of a 0.9 x 0.3 cm aggregate of gant tissue. Submitted in cassette #4. DIAGNOSIS FOR HORACIO RESENDIZ: #1 ASCENDING & RANDOM CECAL BIOPSIES: Tubular adenoma. Non-specific superficial acute inflammation, suggestive of a resolving acute self limited colitis. Mild melanosis coli.#2 DESCENDING/SIGMOID COLON, BIOPSY: Non-specific superficial acute inflammation, suggestive of resolving acute self limited colitis. Mild melanosis coli. #3 TRANSVERSE COLON, BIOPSY: Benign submucosal leiomyoma. Non-specific superficial acute inflammation, suggestive of resolving acute self limited colitis. Moderate melanosis coli. #4 DISTAL RECTUM, BIOPSY: Fragments of mucosa with ulceration, granulation tissue formation. Acute superficial cryptitis with mild crypt distortion, favor an acute infectious proctitis over an inflammatory bowel disease, recommend clinical pathologic correlation. No crypt abscess or dense plasma cell infiltrate seen. COLLECTED DATE: 12/11/2016 [facility] REPORT DATE: 12/12/2016 ELECTRONICALLY SIGNED BY: Maggie Segundo M.D. 12/12/2016 - 14:40:16 [facility]
[2016-12-12] MEDS: DIVALPROEX 500 MG TABLET PO SCH (20:53)
[2016-12-12] MEDS: HYOSCYAMINE 0.125 MG TABLET PO SCH (20:53)
[2016-12-12] MEDS: traZODone 50 MG TABLET PO SCH (20:54)
[2016-12-12] MEDS: HydrOXYzine PAMOATE 50 MG CAPSULE PO SCH (21:38)
[2016-12-13] MEDS: SODIUM CHLORIDE 0.9% 1,000 ML IV SCH ×5 (00:03→16:55)
--- NOTE | 2016-12-13 09:09 | Gastrointestinal Progress Note ---
Assessment and Plan (1) GI bleeding Status: Acute Assessment and plan: The picture is a confusing one as he has had both black stools which may be due to Pepto-Bismol or upper GI tract bleeding and more recently rectal bleeding that is bright red which may be secondary to brisk ulcer bleeding although this is usually associated with tachycardia and a greater drop in the patient's hematocrit which at this point appears negligible. I strongly suspect he has rectal bleeding from either colitis or hemorrhoidal bleeding and at the earlier lack stools may been secondary to gastric erosions or perhaps even just the Pepto-Bismol he had been taking to make his stomach feel better. This patient has a remarkable amount of anxiety which certainly may lead to gastric erosions and/or ulcerations. I will start him on some Protonix if this is not already been initiated. Risks of the procedures include but are not limited to: Bleeding, infection, perforation, cardiac and pulmonary compromise. 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 We will look for lower GI sources as well. Note that this patient has not dropped his hematocrit significantly, currently down to 36%. Biopsies are pending to look at the esophagus for dysplasia given the long segment of Rosales's seen, noted to be 10 cm. 12/11/16--the patient may have also had in addition to the Boston's ulcer noted above a large AVM in the cecum that was cauterized with argon plasma coagulation. The patient had 2 other polyps were incidentally removed. He had the appearance of proctitis as well in the rectum that may have more to do with his fecal incontinence and possible rectal prolapse. Biopsies are pending. We will treat colitis depending on type. The patient can be discharged from my standpoint but would suggest a [facility] facility given his debilitation. 12/12/16--this patient as to potential bleeding sources in the upper GI tract the Boston's ulcer at the EG junction in addition to the large AVM in the cecum now status post treatment. Patient's symptoms appear to be doing better and his bowel movements are slowing down. We have yet to see what the pathology from the rectosigmoid area showing the colitis demonstrates. If this is ulcerative proctitis the patient may need mesalamine however I suspect this is probably more likely to show prolapse changes and he may benefit more from use of Levsin to slow down the GI tract to the point where his bowel movements are more tolerable. 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 He will need a repeat upper endoscopy in 3 years. 12/13/16--the patient's biopsies have come back from his colon evaluation and these show a infectious colitis. The ulceration that is noted in the rectum is thought to be secondary to this infectious colitis as well although inflammatory bowel disease remains in the differential. The nodule biopsied appears to be a leiomyoma and these are generally benign in the colon and requires no further treatment. From my standpoint he can be discharged to the [facility] facility versus home environment. In case he goes home I have written him a prescription for his Cipro, pantoprazole, and Levsin. Although the patient has a long segment of Rosales's (10 cm) this is not the source of his bleeding. He does have nausea and vomiting which have been improved markedly with the use of pantoprazole hence the prescription. He will need to be on twice daily pantoprazole because of the Rosales's and rescoped in 3 years. Current Visit: Yes (2) Diarrhea Status: Acute Assessment and plan: Because of the patient's diarrhea remains unclear. This may be due to a previous C. difficile infection over or due to antibiotic exposure over the last several weeks, will check standard stool cultures and C. difficile and I do plan to do a colonoscopy for the patient leaves the hospital after we establish the findings of the upper GI tract. We will likely do this on . The patient's Depakote level is normal equals 56 (normal equals 50 -100)--this is the medication on the patient's list most likely producing diarrhea at 7-23%, contrary to his opinion, trazodone typically produces constipation in the vast majority of patients. Further recommendations post discovery of stool culture results and colonoscopy. We will undoubtedly performed biopsies to look for the various types of colitis including microscopic and collagenous. 12/10/16--Colonoscopy tomorrow as planned. Clear liquid diet today. 12/11/16--Patient does appear to have some colitis through the colon and may benefit from use of Cipro 500 mg twice daily for a period of 7-10 days, at least if this ends up being an infectious colitis biopsies are pending at this time. 12/12/16--patient has colon biopsies still pending. He is doing well on the low residue, lactose-free diet is now down to about 4 bowel movements per day. Continue to observe and do the biopsy results are back or until he is transferred to a [facility] facility. I can certainly contact him with his biopsy results when these return after discharge 12/13/16--The patient does have improvement of his diarrhea using the Levsin. I have pointed out to him that the cramping is probably side effect of this. The Cipro should help out with the infectious colitis diagnosed on pathology. He will need to be on Cipro for 14 days. Prescription written and left on the front of the chart. I will be signing off at this time as the patient is reached maximum benefits of hospitalization. He can follow-up in my office in 12 weeks. Current Visit: Yes (3) Nausea & vomiting Status: Acute Assessment and plan: I suspect this patient probably has some degree of erosive gastritis although is not complaining of any pain. He has chronic nausea and vomiting. This may have more to do with his anxiety than other issues. He is followed at [facility], and is on Celexa to help with his anxiety. He must be able to tolerate his medications to some degree as he has a normal Depakote level. We will continue to observe the amount that he is eating and having bowel movements. I have asked the nurses to focus on these issues for me and document in the chart. 12/10/16--this patient does have what appears to be erosive duodenitis as well as severe Rosales's and esophageal ulcer that is probably associated with Boston's ulcer atop a hiatal hernia. This may be a source of his melena and possibly some of his nausea vomiting. Protonix twice daily is suggested ongoing for the rest of his life given the Rosales's seen. 12/11/16--this appears to be under control for the present time. Patient is going to need Protonix twice a day as noted above. 12/12/16--No further nausea vomiting. 12/13/16--No further nausea or vomiting. Current Visit: Yes (4) Fecal incontinence Status: Acute Assessment and plan: This may likely improve as the patient's diarrhea improves. Lomotil will help, once we have an etiology for the diarrhea. 12/10/16--we will be performing colonoscopy tomorrow to determine if there is cancer present or colitis and what type. 12/11/16--observe for recurrence. Could benefit from Anusol suppositories twice daily. 12/12/16--We will see how the patient does on Levsin. We can certainly advance this to Lomotil if he is still having episodes of fecal incontinence. 12/13/16--this will likely be improved with Cipro and with the use of Levsin as noted above. 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 Patient will need a repeat upper endoscopy in about 3-5 years depending on pathology, sooner if dysplasia is found. 12/11/16--awaiting biopsy results. Will need repeat upper endoscopy in 3-5 years typically if no dysplasia is seen. 12/12/16--patient will need repeat upper endoscopy in 3 years for this long segment Rosales's confirmed to have no dysplasia on recent pathology and is returned today. 12/13/16--as per above. Prescription for twice daily Protonix written, will sign off at this time. Current Visit: Yes Gastroenterology - PN: Subj Interval history: The biopsies have returned from the patient's colon which did show an infectious colitis, as well as a incidental leiomyoma. The patient is stable from my standpoint to go home. I suspect that his hematocrit is stable. He is able to eat now with the help of Protonix and needs to have this twice daily, due to the severity of the Rosales's involvement of his esophagus. A prescription has been provided for Cipro, pantoprazole, and Levsin to take to the [facility] with him what he is fit for transfer versus home environment. He states that he is having some mild diffuse cramping likely due to his infectious colitis. Exam (Progress Note) - Constitutional Vitals: Period Temp Pulse Resp BP Sys/Weldon Pulse Ox Last 24 Hr 96.6 F-98.5 F 65-86 14-20 120-155/76-89 96-99 General appearance: mild distress - Head Head exam: Present: normocephalic - Eye Eye exam: Present: EOMI, other (This patient has bilateral lid retraction giving him a "startled look") Pupils: Present: COREEN - Respiratory Respiratory exam: Present: clear to auscultation bilaterally - Cardiovascular Cardiovascular exam: Present: regular rate and rhythm - GI/Abdominal GI/Abdominal exam: Present: normal bowel sounds, tenderness (There is mild diffuse tenderness noted), soft. Absent: distended, guarding, rebound - Neurological Exam Neurological exam: Present: alert, oriented X3. Absent: altered - Psychiatric Psychiatric exam: Present: normal affect, normal mood Results - Labs CBC & BMP: 12/12/16 05:58 12/09/16 14:17
[2016-12-13] MEDS: INSULIN REGULAR 100 UNIT/ML SUBCUT SCH ×4 (09:29→20:55)
[2016-12-13] MEDS: CITALOPRAM 20 MG TABLET PO SCH (09:29)
[2016-12-13] MEDS: BENZTROPINE 1 MG TABLET PO SCH ×2 (09:29→20:51)
[2016-12-13] MEDS: HYOSCYAMINE 0.125 MG TABLET PO SCH ×4 (09:29→20:51)
[2016-12-13] MEDS: PANTOPRAZOLE 40 MG VIAL IV SCH (09:30)
--- NOTE | 2016-12-13 10:55 | Hospitalist Progress Note ---
Assessment and Plan (1) Gastrointestinal hemorrhage with melena Status: Acute Assessment and plan: We will gently rehydrate, start PPIs, DVT prophylaxis, promote bowel rest, and consult gastroenterology to evaluate and treat. I have reviewed the patient's home medication none of which are commonly associated with the risk for the development of melena. 12/12-colonoscopy on yesterday revealed large AVM in the cecum which was cauterized. In addition, the patient was noted to have some polyps as well as tightness in the rectum biopsies were obtained results are pending. Hemoglobin and hematocrit are stable today at 10.9/32.3. 12/13-no further episodes of bleeding noted. Biopsy reports are available which were significant for infectious colitis. Agree with GI recommendations of Cipro , pantoprazole, and Levsin. Current Visit: Yes (2) IDDM (insulin dependent diabetes mellitus) Status: Chronic Assessment and plan: We will monitor the patient's blood sugars. Start Accu-Cheks with sliding scale coverage and obtain hemoglobin A1c. Current Visit: No (3) History of bipolar disorder Status: Acute Assessment and plan: We will resume the patient's home medication regimen. Will obtain valproic acid level. 12/12-Valproic acid noted at 56.0. We will continue valproic acid and all home medications as previously ordered. Current Visit: No Hospitalist: Subjective Interval history: Patient seen and examined; chart reviewed. No significant overnight events reported per staff. Patient is currently awaiting [facility] facility placement. Exam - Constitutional Vitals: Period Temp Pulse Resp BP Sys/Weldon Pulse Ox Last 24 Hr 96.6 F-98.5 F 65-93 14-20 120-155/76-89 96-99 General appearance: normal weight, no acute distress - Head Head exam: Present: normal inspection, normocephalic, atraumatic - Eye Eye exam: Present: EOMI. Absent: conjunctival injection Pupils: Present: COREEN, normal accommodation - ENT ENT exam: Present: normal exam, normal external ear exam, normal oropharynx - Neck Neck exam: Present: normal inspection. Absent: lymphadenopathy, meningismus, tenderness, thyromegaly - Respiratory Respiratory exam: Present: clear to auscultation bilaterally. Absent: rales, rhonchi, stridor, wheezes - Cardiovascular Cardiovascular exam: Present: regular rate and rhythm. Absent: carotid bruit, diastolic murmur, gallop, JVD, rubs, systolic murmur - GI/Abdominal GI/Abdominal exam: Present: normal bowel sounds, soft. Absent: tenderness - Extremities Exam Extremities exam: Present: normal inspection, normal capillary refill, full ROM. Absent: edema - Back Exam Back exam: Present: normal inspection - Neurological Exam Neurological exam: Present: alert, oriented X3, CN II-XII intact - Psychiatric Psychiatric exam: Present: flat affect - Skin Skin exam: Present: normal color, warm, dry Results - Labs CBC & BMP: 12/12/16 05:58 12/09/16 14:17
[2016-12-13] MEDS: PANTOPRAZOLE 40 MG TABLET PO SCH (18:34)
[2016-12-13] MEDS: DIVALPROEX 500 MG TABLET PO SCH (20:51)
[2016-12-13] MEDS: traZODone 50 MG TABLET PO SCH (20:51)
[2016-12-13] MEDS: HydrOXYzine PAMOATE 50 MG CAPSULE PO SCH (20:51)
[2016-12-13] MEDS: CIPROFLOXACIN 500 MG TABLET PO SCH (20:52)
[2016-12-14] MEDS: SODIUM CHLORIDE 0.9% 1,000 ML IV SCH ×3 (01:38→11:56)
[2016-12-14 05:04] LABS: Basophils # 0.1 10*3/uL (0.0-0.2); Eosinophils # 0.5 10*3/uL (0.0-0.87); Eosinophils % 8.3 % (0.00-10.9); Hematocrit 37.2 VOL% (42.0-52.0); Hemoglobin 12.3 GM/DL (14.0-18.0); Immature Granulocytes Absolute 0.06 #; Lymphocytes # 2.4 10*3/uL (1.4-4.0); Mean Corpuscular HGB Conc 33.1 GM/DL (32-36); Mean Corpuscular Hemoglobin 29 PG (27-34); Mean Corpuscular Volume 86.3 FL (87-102); Mean Platelet Volume 8.6 FL (9.6-12.0); Monocytes # 0.6 10*3/uL (0.11-0.8); Monocytes % 9.1 % (1.7-12.7); Neutrophils # 2.7 10*3/uL (1.4-7.4); Neutrophils % 42.6 % (38.7-73.9); Platelet Count 300 T/CUMM (130-400); Red Blood Count 4.31 MC/CUMM (3.8-5.5); Red Cell Distribution Width 13.2 % (9.3-17.3); White Blood Count 6.2 T/CUMM (4-12)
[2016-12-14 05:37] LABS: Albumin 2.6 G/DL (3.4-5.0); Bilirubin,Total 0.5 MG/DL (0.2-1.0); Magnesium 1.9 MG/DL (1.8-2.4); Osmolality,Calculated 280.1 MOS/KG (273-304); Phosphorous 3.9 MG/DL (2.5-4.9); Total Protein 5.1 G/DL (6.4-8.3)
[2016-12-14] MEDS: PANTOPRAZOLE 40 MG TABLET PO SCH ×2 (06:18→18:40)
[2016-12-14] MEDS: INSULIN REGULAR 100 UNIT/ML SUBCUT SCH ×4 (08:19→21:04)
[2016-12-14] MEDS: CIPROFLOXACIN 500 MG TABLET PO SCH ×2 (08:22→20:35)
[2016-12-14] MEDS: BENZTROPINE 1 MG TABLET PO SCH ×2 (08:22→20:35)
[2016-12-14] MEDS: CITALOPRAM 20 MG TABLET PO SCH (08:22)
[2016-12-14] MEDS: HYOSCYAMINE 0.125 MG TABLET PO SCH ×4 (09:06→20:35)
--- NOTE | 2016-12-14 09:18 | Hospitalist Progress Note ---
Assessment and Plan (1) Gastrointestinal hemorrhage with melena Status: Acute Assessment and plan: We will gently rehydrate, start PPIs, DVT prophylaxis, promote bowel rest, and consult gastroenterology to evaluate and treat. I have reviewed the patient's home medication none of which are commonly associated with the risk for the development of melena. 12/12-colonoscopy on yesterday revealed large AVM in the cecum which was cauterized. In addition, the patient was noted to have some polyps as well as tightness in the rectum biopsies were obtained results are pending. Hemoglobin and hematocrit are stable today at 10.9/32.3. 12/13-no further episodes of bleeding noted. Biopsy reports are available which were significant for infectious colitis. Agree with GI recommendations of Cipro , pantoprazole, and Levsin. 12/14-Hemoglobin and hematocrit stable at 12.3 and 37.2. No further reports of rectal bleeding reported. Current Visit: Yes (2) IDDM (insulin dependent diabetes mellitus) Status: Chronic Assessment and plan: We will monitor the patient's blood sugars. Start Accu-Cheks with sliding scale coverage and obtain hemoglobin A1c. Current Visit: No (3) History of bipolar disorder Status: Acute Assessment and plan: We will resume the patient's home medication regimen. Will obtain valproic acid level. 12/12-Valproic acid noted at 56.0. We will continue valproic acid and all home medications as previously ordered. Current Visit: No Hospitalist: Subjective Interval history: Patient seen and examined; no significant overnight events reported. Awaiting detention facility placement. Exam - Constitutional Vitals: Period Temp Pulse Resp BP Sys/Weldon Pulse Ox Last 24 Hr 96.0 F-97.7 F 62-88 18-22 116-154/60-92 97-100 General appearance: normal weight, no acute distress - Head Head exam: Present: normal inspection, normocephalic, atraumatic - Eye Eye exam: Present: EOMI. Absent: conjunctival injection Pupils: Present: COREEN, normal accommodation - ENT ENT exam: Present: normal exam, normal external ear exam, normal oropharynx - Neck Neck exam: Present: normal inspection. Absent: lymphadenopathy, meningismus, tenderness, thyromegaly - Respiratory Respiratory exam: Present: clear to auscultation bilaterally. Absent: rales, rhonchi, stridor, wheezes - Cardiovascular Cardiovascular exam: Present: regular rate and rhythm. Absent: carotid bruit, diastolic murmur, gallop, JVD, rubs, systolic murmur - GI/Abdominal GI/Abdominal exam: Present: normal bowel sounds, soft - Extremities Exam Extremities exam: Present: normal inspection, normal capillary refill, full ROM. Absent: edema - Back Exam Back exam: Present: normal inspection - Neurological Exam Neurological exam: Present: alert, oriented X3, CN II-XII intact - Psychiatric Psychiatric exam: Present: flat affect - Skin Skin exam: Present: normal color, warm, dry Results - Labs CBC & BMP: 12/14/16 04:34 12/14/16 04:34 Lab Results: I have reviewed the past 24 hour labs
[2016-12-14] MEDS: HydrOXYzine PAMOATE 50 MG CAPSULE PO SCH (20:35)
[2016-12-14] MEDS: traZODone 50 MG TABLET PO SCH (20:35)
[2016-12-14] MEDS: DIVALPROEX 500 MG TABLET PO SCH (20:35)
[2016-12-15] MEDS: PANTOPRAZOLE 40 MG TABLET PO SCH ×2 (06:16→18:30)
[2016-12-15] MEDS: BENZTROPINE 1 MG TABLET PO SCH ×2 (08:14→20:40)
[2016-12-15] MEDS: CIPROFLOXACIN 500 MG TABLET PO SCH ×2 (08:14→20:40)
[2016-12-15] MEDS: CITALOPRAM 20 MG TABLET PO SCH (08:14)
[2016-12-15] MEDS: INSULIN REGULAR 100 UNIT/ML SUBCUT SCH ×4 (08:15→20:38)
[2016-12-15] MEDS: HYOSCYAMINE 0.125 MG TABLET PO SCH ×4 (08:15→20:40)
--- NOTE | 2016-12-15 11:49 | Hospitalist Progress Note ---
Assessment and Plan (1) Extrapyramidal and movement disorder Status: Acute Assessment and plan: Patient continues to be on Cogentin I do not believe we can give him more than what is getting. This may be the best that can be done for him. Current Visit: No (2) Gastrointestinal hemorrhage with melena Status: Acute Assessment and plan: Patient hematocrit has been stable. We will repeat H&H today. Current Visit: Yes (3) Discharge planning issues Status: Acute Assessment and plan: I am informed by case management that the having problems contacting the place of residence. Plan to discharge him is to in works for today. She will be preparing for his discharge Current Visit: Yes Hospitalist: Subjective Interval history: Patient has been seen interviewed and examined and chart has been reviewed. Gentleman offers complaints of cramping all over but are noticed that he also has significant tardive dyskinesia. His history of psychosis on antipsychotic medications. Is supposed to be on Cogentin 1 mg p.o. twice daily. This will continue Exam - Constitutional Vitals: Period Temp Pulse Resp BP Sys/Weldon Pulse Ox Last 24 Hr 96.4 F-97.9 F 74-94 16-22 109-150/60-91 93-96 General appearance: under weight - Head Head exam: Present: normocephalic, atraumatic - Eye Pupils: Present: COREEN - ENT ENT exam: Present: normal exam - Respiratory Respiratory exam: Present: clear to auscultation bilaterally - Cardiovascular Cardiovascular exam: Present: regular rate and rhythm - GI/Abdominal GI/Abdominal exam: Present: normal bowel sounds, soft - Extremities Exam Extremities exam: Present: other (Patient does have generalized tremors rhythmical suggestive of tardive dyskinesia it does involve the trunk) - Neurological Exam Neurological exam: Present: alert, oriented X3, CN II-XII intact, other ( Tardive dyskinesia) - Psychiatric Psychiatric exam: Present: other (Subdued affect) - Skin Skin exam: Present: warm Results - Labs CBC & BMP: 12/14/16 04:34 12/14/16 04:34 Lab Results: I have reviewed the past 24 hour labs
[2016-12-15] MEDS: DIVALPROEX 500 MG TABLET PO SCH (20:40)
[2016-12-15] MEDS: traZODone 50 MG TABLET PO SCH (20:40)
[2016-12-15] MEDS: HydrOXYzine PAMOATE 50 MG CAPSULE PO SCH (20:40)
[2016-12-16] MEDS: PANTOPRAZOLE 40 MG TABLET PO SCH ×2 (06:00→18:04)
[2016-12-16] MEDS: CIPROFLOXACIN 500 MG TABLET PO SCH ×2 (08:55→21:22)
[2016-12-16] MEDS: CITALOPRAM 20 MG TABLET PO SCH (08:56)
[2016-12-16] MEDS: INSULIN REGULAR 100 UNIT/ML SUBCUT SCH ×4 (08:56→21:24)
[2016-12-16] MEDS: HYOSCYAMINE 0.125 MG TABLET PO SCH ×4 (08:56→21:21)
[2016-12-16] MEDS: BENZTROPINE 1 MG TABLET PO SCH ×2 (08:56→21:21)
[2016-12-16] MEDS ORDERED: ALUM/MAG/SIMETH/LIDO VISC 1:1 30 ML BOTTLE PO ONE (09:21)
[2016-12-16] MEDS ORDERED: LACTULOSE 20 GM/30 ML UDCUP PO ONE (09:22)
--- NOTE | 2016-12-16 09:54 | Hospitalist Progress Note ---
"Assessment and Plan (1) Extrapyramidal and movement disorder Status: Acute Assessment and plan: Status: Acute Assessment and plan: Patient continues to be on Cogentin I do not believe we can give him more than what is getting. This may be the best that can be done for him. Current Visit: No (2) Gastrointestinal hemorrhage with melena Status: Acute Assessment and plan: Patient hematocrit has been stable. 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 chest clear. [facility], s1 s2. abd, soft, bs+ [employer], alert orientedx3 afocal Results - Labs CBC & BMP: 12/14/16 04:34 12/14/16 04:34"
[2016-12-16] MEDS: HydrOXYzine PAMOATE 50 MG CAPSULE PO SCH (21:21)
[2016-12-16] MEDS: traZODone 50 MG TABLET PO SCH (21:21)
[2016-12-16] MEDS: DIVALPROEX 500 MG TABLET PO SCH (21:22)
[2016-12-17 06:00] LABS: Basophils # 0.1 10*3/uL (0.0-0.2); Basophils % 1.1 % (0.0-0.8); Eosinophils # 0.5 10*3/uL (0.0-0.87); Eosinophils % 9.2 % (0.00-10.9); Hemoglobin 12.6 GM/DL (14.0-18.0); Immature Granulocytes % 0.9 %; Immature Granulocytes Absolute 0.05 #; Lymphocytes # 2.1 10*3/uL (1.4-4.0); Lymphocytes % 38.3 % (21.2-54.2); Mean Corpuscular HGB Conc 33.2 GM/DL (32-36); Mean Corpuscular Hemoglobin 29 PG (27-34); Mean Corpuscular Volume 86.6 FL (87-102); Mean Platelet Volume 8.5 FL (9.6-12.0); Monocytes # 0.6 10*3/uL (0.11-0.8); Monocytes % 10.3 % (1.7-12.7); Neutrophils # 2.2 10*3/uL (1.4-7.4); Neutrophils % 40.2 % (38.7-73.9); Platelet Count 274 T/CUMM (130-400); Red Blood Count 4.39 MC/CUMM (3.8-5.5); Red Cell Distribution Width 13.3 % (9.3-17.3); White Blood Count 5.4 T/CUMM (4-12)
[2016-12-17 06:32] LABS: Alanine Aminotransferase 10 U/L (16-61); Albumin 2.9 G/DL (3.4-5.0); Alkaline Phosphatase 57 U/L (45-117); Aspartate Amino Transferase 8 U/L (0-37); Bilirubin,Total < 0.39 MG/DL (0.2-1.0); Blood Urea Nitrogen 16 MG/DL (7-18); Calcium 8.6 MG/DL (8.5-10.1); Glucose 176 MG/DL (74-106); Potassium 4.1 MMOL/L (3.5-5.1); Sodium 136 MMOL/L (136-145); Total Protein 5.7 G/DL (6.4-8.3)
[2016-12-17] MEDS: PANTOPRAZOLE 40 MG TABLET PO SCH ×3 (06:48→18:26)
[2016-12-17] MEDS: HYOSCYAMINE 0.125 MG TABLET PO SCH ×4 (08:19→21:18)
[2016-12-17] MEDS: CITALOPRAM 20 MG TABLET PO SCH (08:19)
[2016-12-17] MEDS: CIPROFLOXACIN 500 MG TABLET PO SCH ×2 (08:19→21:18)
[2016-12-17] MEDS: INSULIN REGULAR 100 UNIT/ML SUBCUT SCH ×4 (08:19→21:18)
[2016-12-17] MEDS: BENZTROPINE 1 MG TABLET PO SCH ×2 (08:19→21:18)
--- NOTE | 2016-12-17 16:36 | Hospitalist Progress Note ---
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 Complains of shoulder pain. Discharge tomorrow. Exam - Constitutional Vitals: Period Temp Pulse Resp BP Sys/Weldon Pulse Ox Last 24 Hr 97.2 F-98.2 F 75-102 16-20 103-133/66-74 96-98 General appearance: normal weight - Head Head exam: Present: normocephalic, atraumatic - Eye Eye exam: Present: EOMI Pupils: Present: COREEN - ENT ENT exam: Present: normal exam - Neck Neck exam: Present: normal inspection - Respiratory Respiratory exam: Present: clear to auscultation bilaterally - Cardiovascular Cardiovascular exam: Present: regular rate and rhythm - GI/Abdominal GI/Abdominal exam: Present: normal bowel sounds, soft. Absent: tenderness, rebound - Extremities Exam Extremities exam: Present: normal inspection - Back Exam Back exam: Present: normal inspection - Neurological Exam Neurological exam: Present: alert - Psychiatric Psychiatric exam: Present: normal affect, normal mood - Skin Skin exam: Present: warm, intact Results - Labs CBC & BMP: 12/17/16 05:40 12/17/16 05:40 Specialty Discharge - Follow Up or Referrals Follow up with: Nathan Lin MD [Physician] - (Follow up in 12 weeks.)
[2016-12-17] MEDS: traZODone 50 MG TABLET PO SCH (21:18)
[2016-12-17] MEDS: DIVALPROEX 500 MG TABLET PO SCH (21:18)
[2016-12-17] MEDS: HydrOXYzine PAMOATE 50 MG CAPSULE PO SCH (21:18)
[2016-12-18] MEDS: PANTOPRAZOLE 40 MG TABLET PO SCH (06:50)
[2016-12-18] MEDS: INSULIN REGULAR 100 UNIT/ML SUBCUT SCH ×2 (08:26→10:53)
[2016-12-18] MEDS: HYOSCYAMINE 0.125 MG TABLET PO SCH (08:27)
[2016-12-18] MEDS: CIPROFLOXACIN 500 MG TABLET PO SCH (08:27)
[2016-12-18] MEDS: CITALOPRAM 20 MG TABLET PO SCH (08:27)
[2016-12-18] MEDS: BENZTROPINE 1 MG TABLET PO SCH (08:27)
--- NOTE | 2016-12-18 10:22 | Discharge Summary ---
Hospital Course - Hospital Course Hospital Course: 56-year-old male that presented to the ED at [facility] this afternoon for the evaluation of bloody stools. Patient has a medical history significant for bipolar disease, humeral shaft fracture, non insulin- dependent diabetes mellitus, schizophrenia, and anxiety disorder. Patient surgical history significant for ORIF and IM nailing of the left humerus (10/2016 ). On November 18 the patient was admitted here for a left humerus fracture as a result of falling in a ditch. The patient underwent surgical repair of the left humerus on November 19, 2016 under the direction of Dr. Beltran. The patient presented to the ED on November 21, 2016 for evaluation of a fall. The patient was attempting to ambulate down the stairs when he lost his balance falling to the bottom of the stairs. He was evaluated and subsequently discharged to [facility] for continuation of care. The patient was discharged from [facility] on December 05, 2016 back to his apartment with his roommate. The patient reported the onset of the above symptoms 1 week prior to presentation. He reported that the symptoms actually started when he was at [facility] however he did not inform the staff. He further reported that he was unable to eat or drink due to the multiple loose stools. He was admitted to the hospitalist service for continuation of care. He was started on protonix with serial hemoglobin checks. Gastroenterology was consulted. EGD was performed 12/10/16 with Rosales's esophagus, a hiatal hernia and Boston's ulcer with mild gastritis and erosive duodenitis. Colonoscopy was performed 12/11/16 with prolapse or proctitis in the rectum and a single AVM which was cauterized. Biopsies were significant for infectious colitis. He was treated with ciprofloxacin. His H/H remained stable. He has now reached maximal benefit of inpatient stay and will be discharged to [facility]. - Time spent with patient Time with patient DS: Less than 30 minutes (25) Diagnosis - Discharge Diagnosis (1) Extrapyramidal and movement disorder Status: Chronic (2) Gastrointestinal hemorrhage with melena Status: Resolved (3) Rosales's esophagus determined by endoscopy Status: Chronic (4) Anemia Status: Chronic Specialty Discharge - Follow Up or Referrals Follow up with: Nathan Lin MD [Physician] - 03/23/17 11:00 am (Follow up in 12 weeks.) Discharge Plan - Discharge Data Disposition: Disch/Xfer to Snf Condition at Discharge: Stable Discharge Diet: high fiber diet Activity: increase activity as tolerated Hygiene: no restrictions Weight Bearing at Discharge: weight bear as tolerated Contact your physician if you experience:: fever over 101, Bleeding - Discharge Medications New Ciprofloxacin Tab [Cipro Tab] 500 mg PO Q12HR #20 tablet traZODone [Desyrel] 100 mg PO BEDTIME #60 tablet Hyoscyamine Tab [Levsin Tab] 0.125 mg PO QID #120 tablet Continue HydrOXYzine PAMOATE CAP [Vistaril Cap] 50 mg PO BEDTIME Benztropine Tab [Cogentin Tab] 1 mg PO BID Citalopram [CeleXA] 20 mg PO DAILY Divalproex Sodium 1,500 mg PO BEDTIME Discontinued Trazodone HCl 50 - 100 mg PO QPM - Follow Up or Referral Follow Up: Nathan Lin MD [Physician] - 03/23/17 11:00 am (Follow up in 12 weeks.) - Forms/Instructions Exam - Constitutional Vitals: Period Temp Pulse Resp BP Sys/Weldon Pulse Ox Last 24 Hr 97.0 F-98.3 F 77-102 16-20 105-111/67-77 95-99 General appearance: normal weight - Head Head exam: Present: normocephalic, atraumatic - Eye Eye exam: Present: EOMI Pupils: Present: COREEN - ENT ENT exam: Present: normal exam - Neck Neck exam: Present: normal inspection - Cardiovascular Cardiovascular exam: Present: regular rate and rhythm - GI/Abdominal GI/Abdominal exam: Present: normal bowel sounds, soft. Absent: tenderness, rebound - Extremities Exam Extremities exam: Present: normal inspection - Back Exam Back exam: Present: normal inspection - Neurological Exam Neurological exam: Present: alert, oriented X3 - Psychiatric Psychiatric exam: Present: normal affect, normal mood - Skin Skin exam: Present: warm, intact Discharge Results Labs on day of discharge: Labs from last 24 hours 12/17/16 12/17/16 12/17/16 20:33 15:30 11:16 POC Glucose 215 H 267 H 187 H DS: Provider Date of admission: 12/09/16 15:38 Primary care physician: . No PCP Attending physician on admission: Bill Monae MD Consults: 12/09/16 20:34 Consult to Anesthesiology [CONS] Routine Consulting Provider: Reason for Anesthesiology: Pre-op Clearance 12/11/16 09:50 Consult to Physical Therapy [CONS] Routine Reason for Physical Therapy: Evaluate and Treat Discharging clinician: Ariane Holden MD
[2016-12-18 10:30] VITALS: BP 108/69
== END 2016-12-18 11:00 | DRG 253 ==
LOC: EDUNIT# → EDBD → N.ED 12:14 → N.EDINP 15:38 → SUATTDRO 15:38 → N.5E 17:25
PROVIDERS: ADMIT Internal Medicine; ATTEND Internal Medicine
PROC: COLONHP (2016-12-11 07:05)

== ENCOUNTER 2019-05-15 12:12 | Inpatient (IN) ==
[2019-05-15] MEDS ORDERED: FUROSEMIDE 40 MG/4 ML VIAL IV STA (12:38)
[2019-05-15] MEDS ORDERED: methylPREDNISolone SOD SUC 125 MG/2 ML VIAL IV STA (12:38)
[2019-05-15] MEDS ORDERED: PIPERACILLIN/TAZOBACTAM 3,375 MG in SODIUM CHLORIDE 0.9% 100 ML IV STA (12:38)
[2019-05-15] MEDS ORDERED: ONDANSETRON 4 MG/2 ML VIAL IV STA (12:38)
[2019-05-15] MEDS ORDERED: LEVOFLOXACIN INJ 750 MG in PREMIX 1 EACH IV STA (12:38)
[2019-05-15 12:58] LABS: Basophils % 0.8 % (0.0-0.8); Eosinophils # 0.1 10*3/uL (0.0-0.87); Eosinophils % 2.1 % (0.00-10.9); Hemoglobin 10.8 GM/DL (14.0-18.0); Immature Granulocytes % 0.6 %; Immature Granulocytes Absolute 0.03 #; Lymphocytes # 0.6 10*3/uL (1.4-4.0); Lymphocytes % 11.8 % (21.2-54.2); Mean Corpuscular HGB Conc 27.7 GM/DL (32-36); Mean Corpuscular Volume 80.4 FL (87-102); Mean Platelet Volume 9.4 FL (9.6-12.0); Monocytes % 15.3 % (1.7-12.7); Neutrophils % 69.4 % (38.7-73.9); Platelet Count 340 T/CUMM (130-400); Red Blood Count 4.85 MC/CUMM (3.8-5.5); White Blood Count 4.8 T/CUMM (4-12)
[2019-05-15] MEDS ORDERED: ALBUTEROL 2.5 MG/3 ML NEB RESP TX SCH (13:00)
[2019-05-15 13:07] LABS: PT Patient Result 10.9 SECS (9.6-12.2); Partial Thromboplastin Time 26.5 SECS (20.8-36.0)
[2019-05-15 13:14] LABS: Alanine Aminotransferase 18 U/L (16-61); Albumin 2.7 G/DL (3.4-5.0); Alkaline Phosphatase 53 U/L (45-117); Aspartate Amino Transferase 27 U/L (0-37); Bilirubin,Total < 0.39 MG/DL (0.2-1.0); Blood Urea Nitrogen 26 MG/DL (7-18); Calcium 9.7 MG/DL (8.5-10.1); Estimated Glom Filtration Rate 52 ML/MIN; Glucose 123 MG/DL (74-106); Osmolality,Calculated 278.8 MOS/KG (273-304); Troponin I < 0.015 NG/ML (0.00-0.045)
[2019-05-15 13:29] LABS: Eosinophils 3 % (0-10); Lymphocytes 10 % (20-55); Segmented Neutrophils 70 % (50-85)
[2019-05-15 13:30] LABS: Anisocytosis 1+; Hypochromasia 1+; Platelet Estimate Adequate; Total Cells Counted 100
[2019-05-15] MEDS ORDERED: ACETAMINOPHEN 500 MG TABLET PO PRN (16:15)
[2019-05-15] MEDS ORDERED: BUDESONIDE/FORMOTEROL 160-4.5 INHALER 6 GM INH PRN (16:15)
[2019-05-15 16:23] LABS: Apearance,Urine CLEAR (Clear); Bilirubin,Urine Negative (Negative); Blood, Urine Negative (Negative); Glucose,Urine (UA) Negative (Negative); Ketones,Urine Negative (Negative); Mucus,Urine Occasional /LPF (Occasional); Nitrite,Urine Negative (Negative); Protein,Urine Negative; RBC,Urine <1 /HPF (0-4); Squamous Epithelial Cell,Urine Occasional /HPF (0-10); Urine Color Yellow (Yellow); Urine Specific Gravity 1.016 (1.001-1.035); Urine Urobilinogen < 2.0 EU/DL (0.2-1.0); WBC,Urine 1 /HPF (0-6)
[2019-05-15] MEDS ORDERED: DEXTROSE 10% 250 ML BAG IV PRN (16:25)
[2019-05-15] MEDS ORDERED: GLUCAGON 1 MG VIAL IM PRN (16:25)
[2019-05-15] MEDS: INSULIN REGULAR 100 UNIT/ML SUBCUT SCH ×2 (17:39→21:00)
[2019-05-15] MEDS: methylPREDNISolone SOD SUC 125 MG/2 ML VIAL IV SCH (17:56)
[2019-05-15] MEDS: AZITHROMYCIN INJ 500 MG in SODIUM CHLORIDE 0.9% 250 ML IV SCH (17:57)
[2019-05-15] MEDS: cefTRIAXone 1,000 MG in SYRINGE 1 EACH IV SCH (17:57)
[2019-05-15] MEDS: ALBUTEROL/IPRATROPIUM 3 ML NEB RESP TX SCH (19:35)
[2019-05-15] MEDS: ACETYLCYSTEINE 20% 800 MG/4 ML VIAL RESP TX SCH (19:35)
[2019-05-15] MEDS: FUROSEMIDE 20 MG TABLET PO SCH (20:59)
[2019-05-15] MEDS: PREGABALIN 75 MG CAPSULE PO SCH (20:59)
[2019-05-15] MEDS: MIRTAZAPINE 15 MG TABLET PO SCH (20:59)
[2019-05-15] MEDS: OLANZapine 5 MG TABLET PO SCH (20:59)
[2019-05-15] MEDS: PROPRANOLOL 10 MG TABLET PO SCH (20:59)
[2019-05-15] MEDS: FERROUS SULFATE 325 MG TABLET PO SCH (20:59)
[2019-05-15] MEDS: RANITIDINE 150 MG TABLET PO SCH (21:00)
[2019-05-15] MEDS: glipiZIDE 10 MG TABLET PO SCH (21:00)
[2019-05-15] MEDS: HydrOXYzine PAMOATE 25 MG CAPSULE PO SCH (21:00)
[2019-05-15] MEDS: MONTELUKAST 10 MG TABLET PO SCH (21:00)
[2019-05-15] MEDS: metFORMIN 500 MG TABLET PO SCH (21:00)
[2019-05-15] MEDS: SUCRALFATE 1 GM TABLET PO SCH (21:00)
[2019-05-16] MEDS: ACETYLCYSTEINE 20% 800 MG/4 ML VIAL RESP TX SCH ×4 (00:32→19:51)
[2019-05-16] MEDS: ALBUTEROL/IPRATROPIUM 3 ML NEB RESP TX SCH ×4 (00:32→19:50)
[2019-05-16] MEDS: methylPREDNISolone SOD SUC 125 MG/2 ML VIAL IV SCH ×5 (01:45→18:03)
[2019-05-16 06:17] LABS: Alanine Aminotransferase 18 U/L (16-61); Albumin 2.5 G/DL (3.4-5.0); Alkaline Phosphatase 61 U/L (45-117); Aspartate Amino Transferase 21 U/L (0-37); Bilirubin,Total < 0.39 MG/DL (0.2-1.0); Blood Urea Nitrogen 39 MG/DL (7-18); Calcium 9.3 MG/DL (8.5-10.1); Estimated Glom Filtration Rate 53 ML/MIN; Glucose 276 MG/DL (74-106); Osmolality,Calculated 288.1 MOS/KG (273-304); Total Protein 6.7 G/DL (6.4-8.3)
[2019-05-16 06:18] LABS: % Iron Saturation 10.1 % (18-50); Ferritin 26.3 ng/ml (26-388)
[2019-05-16 06:28] LABS: Basophils % 0.2 % (0.0-0.8); Hematocrit 36.3 VOL% (42.0-52.0); Hemoglobin 10.3 GM/DL (14.0-18.0); Immature Granulocytes % 0.5 %; Immature Granulocytes Absolute 0.02 #; Lymphocytes # 0.6 10*3/uL (1.4-4.0); Lymphocytes % 13.5 % (21.2-54.2); Mean Corpuscular HGB Conc 28.4 GM/DL (32-36); Mean Platelet Volume 9.6 FL (9.6-12.0); Monocytes % 6.3 % (1.7-12.7); Neutrophils % 79.5 % (38.7-73.9); Platelet Count 292 T/CUMM (130-400); Red Blood Count 4.54 MC/CUMM (3.8-5.5); Red Cell Distribution Width 27.9 % (9.3-17.3); White Blood Count 4.1 T/CUMM (4-12)
[2019-05-16 06:36] LABS: Folate 9.6 NG/ML (5.4-24.0); Hypochromasia 1+; Platelet Estimate Adequate
[2019-05-16] MEDS: DIVALPROEX 500 MG TABLET PO SCH (08:47)
[2019-05-16] MEDS: INSULIN REGULAR 100 UNIT/ML SUBCUT SCH ×4 (08:47→21:05)
[2019-05-16] MEDS: CITALOPRAM 20 MG TABLET PO SCH (08:48)
[2019-05-16] MEDS: PROPRANOLOL 10 MG TABLET PO SCH ×2 (08:48→21:06)
[2019-05-16] MEDS: LISINOPRIL 10 MG TABLET PO SCH (08:48)
[2019-05-16] MEDS: LORATADINE 10 MG TABLET PO SCH (08:48)
[2019-05-16] MEDS: FERROUS SULFATE 325 MG TABLET PO SCH ×3 (08:48→21:06)
[2019-05-16] MEDS: SUCRALFATE 1 GM TABLET PO SCH ×2 (08:48→21:06)
[2019-05-16] MEDS: HydrOXYzine PAMOATE 25 MG CAPSULE PO SCH ×2 (08:48→21:06)
[2019-05-16] MEDS: MULTIVITAMIN (CENTRUM) TABLET PO SCH (08:48)
[2019-05-16] MEDS: metFORMIN 500 MG TABLET PO SCH ×2 (08:48→21:05)
[2019-05-16] MEDS: FUROSEMIDE 20 MG TABLET PO SCH ×2 (08:48→21:06)
[2019-05-16] MEDS: RANITIDINE 150 MG TABLET PO SCH ×2 (08:48→21:06)
[2019-05-16] MEDS: glipiZIDE 10 MG TABLET PO SCH ×2 (08:48→21:06)
[2019-05-16] MEDS: CYANOCOBALAMIN 500 MCG TABLET PO SCH (11:42)
[2019-05-16] MEDS: cefTRIAXone 1,000 MG in SYRINGE 1 EACH IV SCH (17:18)
[2019-05-16] MEDS: AZITHROMYCIN INJ 500 MG in SODIUM CHLORIDE 0.9% 250 ML IV SCH (17:18)
[2019-05-16] MEDS: OLANZapine 5 MG TABLET PO SCH (21:05)
[2019-05-16] MEDS: PREGABALIN 75 MG CAPSULE PO SCH (21:05)
[2019-05-16] MEDS: MIRTAZAPINE 15 MG TABLET PO SCH (21:06)
[2019-05-16] MEDS: MONTELUKAST 10 MG TABLET PO SCH (21:06)
[2019-05-17] MEDS: ACETYLCYSTEINE 20% 800 MG/4 ML VIAL RESP TX SCH ×2 (00:09→07:53)
[2019-05-17] MEDS: ALBUTEROL/IPRATROPIUM 3 ML NEB RESP TX SCH ×2 (00:09→07:51)
[2019-05-17] MEDS: methylPREDNISolone SOD SUC 125 MG/2 ML VIAL IV SCH ×2 (02:45→09:48)
[2019-05-17 06:22] LABS: Basophils % 0.1 % (0.0-0.8); Hematocrit 31.6 VOL% (42.0-52.0); Hemoglobin 9.2 GM/DL (14.0-18.0); Immature Granulocytes % 0.7 %; Immature Granulocytes Absolute 0.05 #; Lymphocytes # 0.6 10*3/uL (1.4-4.0); Lymphocytes % 8.2 % (21.2-54.2); Mean Corpuscular HGB Conc 29.1 GM/DL (32-36); Mean Corpuscular Volume 78.2 FL (87-102); Mean Platelet Volume 9.1 FL (9.6-12.0); Monocytes % 13.2 % (1.7-12.7); Neutrophils % 77.8 % (38.7-73.9); Platelet Count 379 T/CUMM (130-400); Red Blood Count 4.04 MC/CUMM (3.8-5.5)
[2019-05-17 06:44] LABS: Albumin 2.2 G/DL (3.4-5.0); Bilirubin,Total 0.7 MG/DL (0.2-1.0); Calcium 9.3 MG/DL (8.5-10.1); Osmolality,Calculated 284.1 MOS/KG (273-304); Total Protein 5.7 G/DL (6.4-8.3)
[2019-05-17 06:57] LABS: Hypochromasia 1+; Platelet Estimate Adequate
[2019-05-17] MEDS: INSULIN REGULAR 100 UNIT/ML SUBCUT SCH ×2 (09:48→13:03)
[2019-05-17] MEDS: CYANOCOBALAMIN 500 MCG TABLET PO SCH (09:49)
[2019-05-17] MEDS: metFORMIN 500 MG TABLET PO SCH (09:49)
[2019-05-17] MEDS: HydrOXYzine PAMOATE 25 MG CAPSULE PO SCH (09:49)
[2019-05-17] MEDS: FUROSEMIDE 20 MG TABLET PO SCH (09:49)
[2019-05-17] MEDS: LISINOPRIL 10 MG TABLET PO SCH (09:49)
[2019-05-17] MEDS: RANITIDINE 150 MG TABLET PO SCH (09:49)
[2019-05-17] MEDS: glipiZIDE 10 MG TABLET PO SCH (09:49)
[2019-05-17] MEDS: LORATADINE 10 MG TABLET PO SCH (09:49)
[2019-05-17] MEDS: SUCRALFATE 1 GM TABLET PO SCH (09:49)
[2019-05-17] MEDS: CITALOPRAM 20 MG TABLET PO SCH (09:49)
[2019-05-17] MEDS: MULTIVITAMIN (CENTRUM) TABLET PO SCH (09:49)
[2019-05-17] MEDS: PROPRANOLOL 10 MG TABLET PO SCH (09:49)
[2019-05-17] MEDS: DIVALPROEX 500 MG TABLET PO SCH (09:49)
[2019-05-17] MEDS: FERROUS SULFATE 325 MG TABLET PO SCH (09:49)
[2019-05-17 13:36] VITALS: BP 110/51
== END 2019-05-17 15:03 | disposition home or self-care (01) | DRG 202 ==
LOC: N.ED 12:12 → SUATTDRO 16:24 → N.EDINP 16:24 → N.5E 17:10
PROVIDERS: ADMIT Internal Medicine; ATTEND Internal Medicine